=== PATIENT | female | born 1990 | race African-American/Black ===

== ENCOUNTER 2020-05-05 11:01 | Outpatient (REF) | payer OTHER, SELFPAY ==
[2020-05-06 09:33] LABS: CT PCR NOT DETECTED (Not Detect.); NG PCR NOT DETECTED (Not Detect.)
[2020-05-06 09:55] LABS: BV Int Neg Control Negative (Negative); BV Int Pos Control Positive (Positive)
== END 2020-05-05 11:02 | disposition home or self-care (01) ==
LOC: HO.LAB 11:01
PROVIDERS: Visit Provider Advanced Practice Midwife
DX: B37.3 Candidiasis of vulva and vagina (principal); Z11.59 Encounter for screening for other viral diseases; Z11.4 Encounter for screening for human immunodeficiency virus [HIV]; Z11.3 Encounter for screening for infections with a predominantly sexual mode of transmission; Z78.9 Other specified health status
CPT/HCPCS: 87480; 87491; 87510; 87591; 87660; 99212

== ENCOUNTER 2020-07-01 10:59 | Outpatient (REF) | payer OTHER, SELFPAY ==
[2020-07-02 10:30] LABS: BV Int Neg Control Negative (Negative); BV Int Pos Control Positive (Positive)
[2020-07-02 21:36] LABS: C. trachomatis RNA TMA NOT DETECTED (NOT DETECTED); N. gonorrhoeae RNA TMA NOT DETECTED (NOT DETECTED)
== END 2020-07-01 11:00 | disposition home or self-care (01) ==
LOC: HO.LAB 10:59
PROVIDERS: PCP Internal Medicine; Visit Provider Advanced Practice Midwife
DX: Z01.419 Encounter for gynecological examination (general) (routine) without abnormal findings (principal); N76.0 Acute vaginitis; B96.89 Other specified bacterial agents as the cause of diseases classified elsewhere; Z20.2 Contact with and (suspected) exposure to infections with a predominantly sexual mode of transmission; Z78.9 Other specified health status; Z80.3 Family history of malignant neoplasm of breast
CPT/HCPCS: 36415; 87210; 87480; 87491; 87510; 87591; 87660

== ENCOUNTER → 2020-07-09 15:03 | Outpatient (BNVA) | payer OTHER, SELFPAY | PROVIDERS: PCP Internal Medicine; Visit Provider Advanced Practice Midwife | DX: Z32.02 Encounter for pregnancy test, result negative (principal) | CPT/HCPCS: 99211 ==

== ENCOUNTER → 2020-09-04 09:25 | Outpatient (BNVA) | payer OTHER, SELFPAY | PROVIDERS: PCP Internal Medicine; Visit Provider Advanced Practice Midwife | DX: Z32.01 Encounter for pregnancy test, result positive (principal); N92.6 Irregular menstruation, unspecified | CPT/HCPCS: 81025; 99212 ==

== ENCOUNTER 2020-09-18 09:56 | Outpatient (REF) | payer OTHER, SELFPAY ==
--- NOTE | ~2020-09-18 | US_ITS ---
EXAMINATION: OBSTETRICAL ULTRASOUND, FIRST TRIMESTER HISTORY: 30-year-old with uncertain dates Viability LMP: 08/05/2020 COMPARISON: 05/07/2019 TECHNIQUE: Real time transabdominal imaging with color and M-mode Doppler. FINDINGS: A single, live IUP CRL of 2.0 mm c/w 5.6wks is noted. Heart Rate: 120 beats per minute. Both maternal ovaries are seen and appear normal. GESTATIONAL AGE: 1. GA from LMP: 6.2 wks 2. GA from AUA: 5.6 wks ESTIMATED DATE OF DELIVERY: 1. MARIANNE from LMP: 05/12/2021 2. MARIANNE from AUA: 05/15/2021 US/US OB transvaginal IMPRESSION: 1. A single live IUP 2. Size equals dates 3. Normal ovaries A follow-up ultrasound at approximately 12 weeks of gestation for NT evaluation is suggested (not scheduled).
--- NOTE | ~2020-09-18 | US_ITS ---
EXAMINATION: OBSTETRICAL ULTRASOUND, FIRST TRIMESTER HISTORY: 30-year-old with uncertain dates Viability LMP: 08/05/2020 COMPARISON: 05/07/2019 TECHNIQUE: Real time transabdominal imaging with color and M-mode Doppler. FINDINGS: A single, live IUP CRL of 2.0 mm c/w 5.6wks is noted. Heart Rate: 120 beats per minute. Both maternal ovaries are seen and appear normal. GESTATIONAL AGE: 1. GA from LMP: 6.2 wks 2. GA from AUA: 5.6 wks ESTIMATED DATE OF DELIVERY: 1. MARIANNE from LMP: 05/12/2021 2. MARIANNE from AUA: 05/15/2021 US/US OB <= 14 weeks fetus IMPRESSION: 1. A single live IUP 2. Size equals dates 3. Normal ovaries A follow-up ultrasound at approximately 12 weeks of gestation for NT evaluation is suggested (not scheduled).
== END 2020-09-18 09:57 | disposition home or self-care (01) ==
LOC: HO.US 09:56
PROVIDERS: PCP Internal Medicine; Visit Provider Advanced Practice Midwife
DX: R10.2 Pelvic and perineal pain (principal); N92.6 Irregular menstruation, unspecified
CPT/HCPCS: 76801; 76817

== ENCOUNTER → 2020-10-08 10:03 | Outpatient (BNVA) | payer OTHER, SELFPAY | PROVIDERS: PCP Internal Medicine; Visit Provider Advanced Practice Midwife | DX: Z13.89 Encounter for screening for other disorder (principal) | CPT/HCPCS: 99212 ==

== ENCOUNTER 2020-10-29 09:24 | Outpatient (REF) | payer OTHER, SELFPAY ==
[2020-10-30 09:17] LABS: BV Int Neg Control Negative (Negative); BV Int Pos Control Positive (Positive)
[2020-10-30 09:28] LABS: CT PCR NOT DETECTED (Not Detect.); NG PCR NOT DETECTED (Not Detect.)
== END 2020-10-29 09:25 | disposition home or self-care (01) ==
LOC: HO.LAB 09:24
PROVIDERS: PCP Internal Medicine; Visit Provider Advanced Practice Midwife
DX: Z34.90 Encounter for supervision of normal pregnancy, unspecified, unspecified trimester (principal); Z20.2 Contact with and (suspected) exposure to infections with a predominantly sexual mode of transmission; Z86.59 Personal history of other mental and behavioral disorders
CPT/HCPCS: 81003; 87480; 87491; 87510; 87591; 87660; 99212

== ENCOUNTER 2020-10-30 13:27 | Outpatient (REF) | payer OTHER, SELFPAY ==
--- NOTE | ~2020-10-30 | US_ITS ---
EXAMINATION: OBSTETRICAL ULTRASOUND, FIRST TRIMESTER HISTORY: 30-year-old at 12.2 weeks of gestation NT screening COMPARISON: 09/18/2020 TECHNIQUE: Real time transabdominal imaging with color and M-mode Doppler. FINDINGS: A single, live IUP CRL of 65.3 mm c/w 13.0wks is noted. Heart Rate: 150 beats per minute. Normal yolk sac seen. NT was 1.96.mm. NB Present The embryo appears sonographically wnl for this GA. Right ovary is within normal limits. Left ovary was suboptimally seen. GESTATIONAL AGE: 1. Established GA: 12.2 wks 2. GA from AUA: 13.0 wks ESTIMATED DATE OF DELIVERY: 1. Established MARIANNE: 05/12/2021 2. MARIANNE from [facility]: 05/07/2021 US/US OB 1T nuc measure add IMPRESSION: 1. Single live IUP 2. Size equals dates 3. NT of 1.96 mm MFM Consultation: I reviewed the ultrasound findings along with significance of NT measurement. The NT of less than 3mm is generally reassuring. However, the sensitivity for T21 detection is only 60%. I reviewed the availability of serum aneuploidy screening which includes cell-free DNA and placental protein based tests. I discussed the sensitivity, false-positive rate, and other limitations associated with each test. I also reviewed the availability of invasive diagnostic tests that are associated small but definite risk of miscarriage. We also reviewed the differences between screening tests and diagnostic tests. After our discussion, she opted for the First trimester screening that is based on cell-free DNA or non-invasive testing (NIPT). The result will be faxed to your office in approximately 7 days. A follow up at 18 weeks for survey has been scheduled. Thank you very much for this referral. Total time 20 minutes. The time spent was devoted to counseling the patient about the disease and diagnosis, coordinating care including reviewing her records, pertinent lab data and studies, as well as discussing diagnostic evaluation and workup, plan therapeutic interventions and future disposition of care. This includes any additional research needed to obtain further information in formulating the plan of care of this patient. This note was generated with a voice recognition program. Please excuse any errors which may have been overlooked during my review of this note. Sometimes these errors may affect the content or meaning of a given sentence.
== END 2020-10-30 13:28 | disposition home or self-care (01) ==
LOC: HO.US 13:27
PROVIDERS: PCP Internal Medicine; Visit Provider Advanced Practice Midwife
DX: Z34.90 Encounter for supervision of normal pregnancy, unspecified, unspecified trimester (principal); Z36.82 Encounter for antenatal screening for nuchal translucency
CPT/HCPCS: 76813; 76814

== ENCOUNTER 2020-11-26 11:57 | Outpatient (REF) | payer OTHER, SELFPAY ==
[2020-11-27 08:42] LABS: BV Int Neg Control Negative (Negative); BV Int Pos Control Positive (Positive)
== END 2020-11-26 11:58 | disposition home or self-care (01) ==
LOC: HO.LAB 11:57
PROVIDERS: PCP Internal Medicine; Visit Provider Advanced Practice Midwife
DX: O26.892 Other specified pregnancy related conditions, second trimester (principal); N89.8 Other specified noninflammatory disorders of vagina; Z3A.16 16 weeks gestation of pregnancy
CPT/HCPCS: 81003; 87480; 87510; 87660; 99212

== ENCOUNTER 2020-12-04 13:45 | Outpatient (REF) | payer OTHER, SELFPAY ==
[2020-12-04 14:48] LABS: MANUAL DIFF FLAG NO
[2020-12-04 14:56] LABS: Basophils Percent Auto 0.2 % (0-2); Eosinophils Absolute Auto 0.1 X10*3/uL (0.0-0.4); Eosinophils Percent Auto 1.1 % (0-4); Hematocrit 34.4 % (37-47); Hemoglobin 11.7 g/dl (12.0-16.0); Imm Gran Abs Auto 0.05 X10*3/uL (0.00-0.03); Imm Gran Pct Auto 0.6 % (0.0-0.4); Lymphocytes Absolute Auto 1.1 X10*3/uL (1.2-4.9); Lymphocytes Percent Auto 13.3 % (20-40); Mean Corpuscular Hemoglobin 30.8 pg (27.0-33.0); Mean Corpuscular Volume 90.5 fL (80-98); Mean Platelet Volume 11.4 fL (9.4-12.3); Monocytes Absolute Auto 0.5 X10*3/uL (0.1-1.2); Monocytes Percent Auto 6.2 % (2-11); Neutrophils Absolute Auto 6.6 X10*3/uL (2.0-8.3); Neutrophils Percent Auto 78.6 % (45-73); Platelet Count 164 X10*3/uL (160-400); Red Cell Distribution Width 13.5 % (11.0-16.0); White Blood Count 8.4 X10*3/uL (4.8-10.8)
[2020-12-04 15:40] LABS: Syphilis Screen Nonreactive (Nonreactive)
[2020-12-04 17:32] LABS: Amphetamine Screen Urine Not Detected (Not Detect); Barbiturates, Urine Not Detected (Not Detect); Benzodiazepines Screen Urine Not Detected (Not Detect); Cannabinoid Screen Urine Not Detected (Not Detect); Cocaine Screen Urine Not Detected (Not Detect); Opiate Screen Urine Not Detected (Not Detect); Phencyclidine Screen Urine Not Detected (Not Detect)
[2020-12-05 08:52] LABS: Rubella IgG Antibody 2.56 Index
[2020-12-05 12:41] LABS: CT PCR NOT DETECTED (Not Detect.); NG PCR NOT DETECTED (Not Detect.)
[2020-12-07 08:00] LABS: HBsAGNum1 0.18 S/CO (0.00-0.99); HIV AB/AG Nonreactive (Nonreactive); HIV Num 1 0.06 S/CO (0.00-0.99); Hepatitis B Surface Antigen Negative (Negative); ~HepC Num1 0.13 S/CO (0.00-0.79); ~Hepatitis C Antibody Nonreactive (Nonreactive)
[2020-12-07 15:32] LABS: Hematocrit 33.3 % (35.0-45.0); Hemoglobin 11.6 g/dL (11.7-15.5); MCH 31.4 pg (27.0-33.0); RDW 12.9 % (11.0-15.0)
== END 2020-12-04 13:46 | disposition home or self-care (01) ==
LOC: HO.LAB 13:45
PROVIDERS: PCP Internal Medicine; Visit Provider Advanced Practice Midwife
DX: Z30.09 Encounter for other general counseling and advice on contraception (principal); B37.3 Candidiasis of vulva and vagina; Z20.2 Contact with and (suspected) exposure to infections with a predominantly sexual mode of transmission; B96.89 Other specified bacterial agents as the cause of diseases classified elsewhere; N76.0 Acute vaginitis; Z78.9 Other specified health status; Z83.2 Family history of diseases of the blood and blood-forming organs and certain disorders involving the immune mechanism
CPT/HCPCS: 80307; 83020; 85014; 85018; 85025; 85041; 86762; 86780; 86787; 86803; 86850; 86886; 86900; 86901; 87086; 87340; 87389; 87491; 87591

== ENCOUNTER 2020-12-11 11:27 | Outpatient (REF) | payer OTHER, SELFPAY ==
--- NOTE | ~2020-12-11 | US_ITS ---
EXAMINATION: US OBSTETRICAL CLINICAL INFORMATION: 30-year-old at 18.2 weeks of gestation Suspected anomaly COMPARISON: 11/03/2020 TECHNIQUE: Real-time transabdominal ultrasound was performed using C1-5 megahertz transducer. FINDINGS: A single, active, fetus is seen in vertex presentation. The placenta is anterior without previa, and the amniotic fluid volume is wnl. MEASUREMENTS: 1. Biparietal Diameter: 4.5 cm; 19.4 wks 2. Occipital Frontal Diameter: 5.3 cm 3. Head Circumference: 16.5 cm; 19.2 wks 4. Abdominal Circumference: 13.4 cm; 18.6 wks 5. Femur Length: 2.9 cm; 19.0 wks 6. Humerus Length: 2.8 cm; 19.1 wks 7. Tibia Length: 2.5 cm; 18.5 wks 8. Ulna Length: 2.7 cm; 19.5 wks 9. Lateral ventricle: 0.72 cm 10. Cerebellum: 1.8 cm; 18.3 wks 11. Cisterna Magna: 0.4 cm 12. Nuchal Fold: 2.8 mm 13. Heart Rate: 134 beats per minute Rt ovary: normal Lt ovary: normal Cervical length 3.1 cm on T/A. GESTATIONAL AGE: 1. Established GA: 18.2 wks 2. GA from [facility]: 19 point wks ESTIMATED DATE OF DELIVERY: 1. Established MARIANNE: 05/12/2021 2. MARIANNE from [facility]: 05/05/2021 ANATOMY: The visualized anatomy includes but not limited to: 1. Cranium: Normal 2. Intracranial anatomy: cavum septum pellucidi, lateral ventricles, choroid plexus, cerebellum, posterior fossa, third and fourth ventricles. 3. face: orbits, lip/palate, profile, nasal bone 4. Heart: four-chamber view of the heart, ventricular septum, foramen ovale, pulmonary vein, left and right outflow tracts, three-vessel view, 3 vessel trachea view, aortic and ductal arches, situs.. 5. Diaphragm: Normal 6. Abdominal wall: Normal 7. Cord Insertion: Normal 8. Spine: Cervical, thoracic, lumbar, sacral. 9. Stomach: Normal size and shape 10. Right Kidney: Normal 11. Left Kidney: Normal 12. 3 vessel cord: Normal 13. Upper extremity: Open hands, fifth digit. 14. Lower extremity: Tibia, fibula, bilateral feet. 15. Bladder: Normal 16. Genitalia: Male, patient aware US/US OB /maternal detail IMPRESSION: 1. Single, living, intrauterine with appropriate biometry. 2. Normal survey DISCUSSION: I reviewed today's ultrasound findings. We discussed the limitations of ultrasound in diagnosing aneuploidy and other congenital abnormalities. I reviewed the differences between screening test and diagnostic test. Amniocentesis was discussed and declined. She was informed that the baseline incidence of congenital abnormalities is approximately 3-5%. Not all these conditions are diagnosable in utero. RECOMMENDATIONS: Follow-up when necessary. Thank you for allowing me to participate in her care. Total time 20 minutes. The time spent was devoted to counseling the patient about the disease and diagnosis, coordinating care including reviewing her records, pertinent lab data and studies, as well as discussing diagnostic evaluation and workup, plan therapeutic interventions and future disposition of care. This includes any additional research needed to obtain further information in formulating the plan of care of this patient. This note was generated with a voice recognition program. Please excuse any errors which may have been overlooked during my review of this note. Sometimes these errors may affect the content or meaning of a given sentence.
== END 2020-12-11 11:28 | disposition home or self-care (01) ==
LOC: HO.US 11:27
PROVIDERS: Visit Provider Advanced Practice Midwife
DX: O35.9XX0 Maternal care for (suspected) fetal abnormality and damage, unspecified, not applicable or unspecified (principal); Z3A.18 18 weeks gestation of pregnancy
CPT/HCPCS: 76811

== ENCOUNTER 2020-12-15 14:37 | Emergency (ER) | payer OTHER, SELFPAY ==
[2020-12-15 15:10] VITALS: BP 114/64; PULSE 69; RESP 18; TEMP 36.7; O2SAT 97; BMI 28.6
[2020-12-15 16:05] LABS: Glucose Urine UA NEG (NEG); Leukocyte Esterase Urine NEG (NEG); Nitrite Urine NEG (NEG); Urine Blood NEG (NEG); Urine Ketones 5 MG/DL (NEG); Urine Protein TRACE MG/DL (NEG-TRACE)
[2020-12-15 16:06] LABS: Appearance Urine CLEAR; Color Urine YELLOW
--- NOTE | 2020-12-15 17:45 | ED_ITS ---
HPI - Female Genitourinary General Chief complaint: Urogenital-Female Stated complaint: 19 weeks , possible kidney infection Time Seen by Provider: 12/15/20 17:38 Source: patient Mode of arrival: ambulatory Limitations: no limitations History of Present Illness HPI Narrative: 30-year-old female currently 19 weeks presents with urinary hesitancy and frequency. she did report this to her sap developer, sap developer requested her to present to an emergency department or urgent care facility for urinalysis. She does not report any abnormal vaginal discharge, vaginal bleeding, she does state to feel tight around her abdomen but she has felt this way for several weeks. This is her 4th , and she does not have any concerns at this time. She denies vaginal bleeding, cramping, chest pain or pressure, palpitations, shortness of breath, shortness of breath on exertion, edema, dizziness, lightheadedness, weakness, abnormal bruising, nausea, vomiting, diarrhea, constipation, trauma, or recent falls. MD elicited complaint: UTI Onset (ago): day(s) Location of symptoms: urethra Severity: mild Severity scale (1-10): 4 Consistency: intermittent Vaginal discharge: none Vaginal bleeding: none Urinary symptoms: Dysuria, Urgency and Frequency Exacerbating factors: urination Relieving factors: none Associated symptoms: denies other symptoms Treatment prior to arrival: none Sexual activity: Yes Patient : Yes Related Data : 4 Para: 3 Total number of abortions (spontaneous and elective): 0 Previous Rx's Medication Instructions Recorded vitamins with calcium 1 tab PO DAILY 30 Days #30 tab 07/03/20 no.72-iron 29 mg-folic acid 1 mg tablet metronidazole 500 mg tablet 500 mg PO BID 7 Days #14 tab 11/03/20 metronidazole 500 mg tablet 500 mg PO BID PRN 7 Days #14 tab 11/30/20 Allergies Allergy/AdvReac Type Severity Reaction Status Date / Time No Known Allergies Allergy Verified 12/15/20 15:10 Review of Systems Review of Systems: Constitutional: No Fever, No Chills ENT/Mouth: No sore throat Eyes: No Eye Pain, No Swelling, No Redness Cardiovascular: No Chest Pain, No SOB Respiratory: No Cough, No Sputum, No Wheezing Gastrointestinal: No Nausea, no Vomiting, No Diarrhea, no abdominal pain Genitourinary: positive , positive Dysuria, positive urinary frequency, no Hematuria, no Flank Pain, positive hesitancy Musculoskeletal: No joint pain, No Myalgias Skin: No Skin Lesions, No rash Neuro: No Weakness, No Numbness, No Headache Psych: No Anxiety/Panic, No Depression Heme/Lymph: No Bruising, No Lymphadenopathy Endocrine: No Polyuria, No Polydipsia Yes all other systems are reviewed and are negative [facility] Past Medical History Attestation statement: The following information was validated with the patient. Source: old records reviewed Medical History Asthma : 4 Para: 3 Total number of abortions (spontaneous and elective): 0 Family History Family History Mother History of breast cancer in female History of diabetes mellitus Hypertension Father Cardiovascular disease Maternal Grandmother Hypertension Cardiovascular disease History of stroke Maternal Aunt History of diabetes mellitus Hypertension Social History Social History Household Members: Children Housing: House Are you a primary home care aide to a significant other at home: No Do you presently have visiting nurse or other home services: No Alcohol intake: former Trauma History: None Agree to transfusion: Yes Advance Directives: No Advance Directives Information Provided: No Patient : Yes service: No Current occupational status: employed 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 Oriented X3. No acute distress. Eyes: Pupils equal, round and reactive to light. ENT: Pharynx normal. Neck: Normal inspection. Neck supple. CVS: Normal heart rate and rhythm. Pulses normal. Respiratory: No respiratory distress. Breath sounds normal. Abdomen: Soft and nontender. palpable uterus just above the umbilicus consistent with 19 weeks . Skin: Skin warm and dry. Normal skin color. Normal skin turgor. Extremities: No lower extremity edema. Neuro: No motor deficit. No sensory deficit. Course Course Course Narrative: A 30-year-old female, 4 para 3 A0 presents with urinary frequency, hesitancy, and urgency. States that she was referred by her sap developer. Her urinalysis is negative, will refer back to sap developer. heart tones 155. patient verbalized understanding of and agrees to plan of care discharge home. MDM - Female Genitourinary Differential Diagnosis Differential diagnosis: Likely urinary tract infection Medical Records Attestation: I reviewed the patient's medical records. Lab Data Attestation: I reviewed the patient's lab results. Labs: Lab Results 12/15/20 Range/Units 15:54 Urine Color YELLOW Urine Appearance CLEAR Urine pH 7.0 (5.0-8.0) Ur Specific [place] 1.020 (1.005-1.025) Urine Protein TRACE (NEG-TRACE) MG/DL Urine Glucose (UA) NEG (NEG) MG/DL Urine Ketones 5 (NEG) MG/DL Urine Blood NEG (NEG) Urine Nitrite NEG (NEG) Ur Leukocyte Esterase NEG (NEG) Discharge Plan Discharge Clinical Impression: Increased urinary frequency Qualifiers: Weeks of gestation: 19 weeks Qualified Code(s): Z3A.19 - 19 weeks gestation of Patient Disposition: Home, Self-Care Instructions: Dysuria (ED), at 19 to 22 Weeks (ED) Additional Instructions: you were evaluated for urinary frequency, hesitancy, and urinary symptoms. Your urinalysis was negative. Please follow-up with your sap developer for further evaluation. heart tones were 155. Thank you for choosing this emergency department for evaluation. Please follow-up with primary care physician as needed. Return to the emergency department for any new, concerning, or worsening symptoms. Prescriptions: No Action Plus 29 mg iron- 1 mg tablet 1 tab PO DAILY 30 Days Qty: 30 RF: 11 metronidazole [Flagyl] 500 mg tablet 500 mg PO BID 7 Days Qty: 14 RF: 0 metronidazole [Flagyl] 500 mg tablet 500 mg PO BID PRN (Reason: BV) 7 Days Qty: 14 RF: 0 Interventions: ED Discharge Assessment Last Done: 12/15/20 18:20 Discharge Date/Time: 12/15/20 18:22
--- NOTE | 2020-12-15 17:59 | PC.NURSE ---
PT HEART RATE 155.
== END 2020-12-15 18:22 | disposition home or self-care (01) ==
PROVIDERS: Emergency Provider Emergency Medicine; PCP Internal Medicine
DX: O26.892 Other specified pregnancy related conditions, second trimester (principal); R35.0 Frequency of micturition; R39.11 Hesitancy of micturition; R39.15 Urgency of urination; Z3A.19 19 weeks gestation of pregnancy
CPT/HCPCS: 81003; 99283; 99284

== ENCOUNTER → 2020-12-24 11:05 | Outpatient (BNVA) | payer OTHER, SELFPAY | PROVIDERS: PCP Internal Medicine; Visit Provider Advanced Practice Midwife | DX: Z34.92 Encounter for supervision of normal pregnancy, unspecified, second trimester (principal); Z3A.20 20 weeks gestation of pregnancy | CPT/HCPCS: 99212 ==

== ENCOUNTER → 2021-01-21 11:39 | Outpatient (BNVA) | payer OTHER, SELFPAY | PROVIDERS: Visit Provider Advanced Practice Midwife | DX: Z34.82 Encounter for supervision of other normal pregnancy, second trimester (principal); Z3A.24 24 weeks gestation of pregnancy | CPT/HCPCS: 99212 ==

== ENCOUNTER 2021-02-18 11:34 | Outpatient (REF) | payer OTHER, SELFPAY ==
[2021-02-19 08:47] LABS: BV Int Neg Control Negative (Negative); BV Int Pos Control Positive (Positive)
== END 2021-02-18 11:35 | disposition home or self-care (01) ==
LOC: HO.LAB 11:34
PROVIDERS: Visit Provider Advanced Practice Midwife
DX: O26.893 Other specified pregnancy related conditions, third trimester (principal); R35.0 Frequency of micturition; Z3A.28 28 weeks gestation of pregnancy
CPT/HCPCS: 87086; 87480; 87510; 87660; 99212

== ENCOUNTER 2021-02-24 14:00 | Outpatient (RCR) | payer OTHER, SELFPAY | END 2021-06-21 08:24 | disposition home or self-care (01) | LOC: HO.PT 14:00 | PROVIDERS: PCP Internal Medicine; Visit Provider Advanced Practice Midwife | DX: O26.899 Other specified pregnancy related conditions, unspecified trimester (principal); M54.5 Low back pain | CPT/HCPCS: 97110; 97112; 97116; 97162 ==

== ENCOUNTER → 2021-03-02 13:12 | Outpatient (BNVA) | payer OTHER, SELFPAY | PROVIDERS: Visit Provider Advanced Practice Midwife | DX: O26.843 Uterine size-date discrepancy, third trimester (principal); Z3A.30 30 weeks gestation of pregnancy | CPT/HCPCS: 99212 ==

== ENCOUNTER 2021-03-05 12:01 | Outpatient (REF) | payer OTHER, SELFPAY ==
--- NOTE | ~2021-03-05 | US_ITS ---
EXAMINATION: OBSTETRICAL ULTRASOUND, Follow up HISTORY: 31-year-old at 30.2 weeks of gestation Size date discrepancy COMPARISON: 12/11/2020 TECHNIQUE: Real time transabdominal imaging with color and M-mode Doppler. PRESENTATION: Vertex PLACENTA LOCATION: Anterior without previa AMNIOTIC FLUID: SHARRI 22.0 cm MEASUREMENTS: 1. Biparietal Diameter: 7.8 cm; 31.2 wks 2. Head Circumference: 29.3 cm; 32.3 wks 3. Abdominal Circumference: 29.7 cm; 33.5 wks 4. Femur Length: 6.1 cm; 31.5 wks 5. Heart Rate: 156 beats per minute WEIGHT: EFW: 2036 grams (4 lbs 8 oz) -- 98 %. BIOPHYSICAL PROFILE: Motion: 2 Tone: 2 Breathin Amniotic Fluid: 2 Total score: 8/8 GESTATIONAL AGE: 1. Established GA: 30.2 wks 2. GA from AUA: 32.2 wks ESTIMATED DATE OF DELIVERY: 1. Established MARIANNE: 05/12/2021 2. MARIANNE from [facility]: 04/28/2021 US/US OB follow up IMPRESSION: 1. A single active fetus is in vertex presentation 2. Size greater than dates, EFW corresponds to 98th percentile 3. SHARRI of 22.0 cm with the BPP of 8/8 Her 1 hour GLT is pending. She has a history of full-term delivery with weight of 8 lbs. 15 oz. She also reports having delivered a 4 lbs. 8 oz. child at approximately 32 weeks. States that the indication for delivery was growth restriction. The babies spent less than a weak intensive care unit. I do not have the record from my inspection today to verify her history. I reassured her that the there does not appear to be growth problem. I also discussed the limitations of ultrasound and estimating weights. Although the EFW on today's examination corresponds to 98th percentile, this does not predict macrosomia at term. Unless the EFW is 4500 g in diabetic and 5000 g in nondiabetic women, everyone is encouraged to attempt a vaginal delivery. Thank you very much for this referral. Total time 30 minutes. The time spent was devoted to counseling the patient about the disease and diagnosis, coordinating care including reviewing her records, pertinent lab data and studies, as well as discussing diagnostic evaluation and workup, plan therapeutic interventions and future disposition of care. This includes any additional research needed to obtain further information in formulating the plan of care of this patient. This note was generated with a voice recognition program. Please excuse any errors which may have been overlooked during my review of this note. Sometimes these errors may affect the content or meaning of a given sentence.
== END 2021-03-05 12:02 | disposition home or self-care (01) ==
LOC: HO.US 12:01
PROVIDERS: Visit Provider Advanced Practice Midwife
DX: O26.849 Uterine size-date discrepancy, unspecified trimester (principal)
CPT/HCPCS: 76816

== ENCOUNTER 2021-03-08 10:37 | Outpatient (REF) | payer OTHER, SELFPAY ==
[2021-03-08 12:16] LABS: Hematocrit 30.4 % (37-47); Hemoglobin 10.3 g/dl (12.0-16.0); Mean Corpuscular HGB Conc 33.9 g/dl (31.0-35.0); Mean Corpuscular Hemoglobin 29.8 pg (27.0-33.0); Mean Corpuscular Volume 87.9 fL (80-98); Mean Platelet Volume 11.4 fL (9.4-12.3); Platelet Count 149 X10*3/uL (160-400); Red Blood Count 3.46 X10*6/uL (4.20-5.50); Red Cell Distribution Width 13.2 % (11.0-16.0); White Blood Count 7.4 X10*3/uL (4.8-10.8)
[2021-03-08 12:34] LABS: Glucose 1 Hour PP 50gm Dose 191 mg/dL (60-140)
[2021-03-08 13:27] LABS: Syphilis Screen Nonreactive (Nonreactive)
== END 2021-03-08 10:38 | disposition home or self-care (01) ==
LOC: HO.LAB 10:37
PROVIDERS: PCP Internal Medicine; Visit Provider Advanced Practice Midwife
DX: Z34.93 Encounter for supervision of normal pregnancy, unspecified, third trimester (principal)
CPT/HCPCS: 36415; 85027; 86780

== ENCOUNTER 2021-03-15 09:29 | Outpatient (REF) | payer OTHER, SELFPAY ==
[2021-03-15 11:06] LABS: Glucose Fasting 93 mg/dL (60-99)
[2021-03-15 12:33] LABS: Glucose 1 Hour 193 mg/dL
[2021-03-15 13:08] LABS: Glucose 2 Hour 182 mg/dL
[2021-03-15 14:13] LABS: Glucose 3 Hour 160 mg/dL
== END 2021-03-15 09:30 | disposition home or self-care (01) ==
LOC: HO.LAB 09:29
PROVIDERS: PCP Internal Medicine; Visit Provider Advanced Practice Midwife
DX: O26.849 Uterine size-date discrepancy, unspecified trimester (principal); O99.810 Abnormal glucose complicating pregnancy
CPT/HCPCS: 36415; 82951

== ENCOUNTER → 2021-03-18 11:38 | Outpatient (BNVA) | payer OTHER, SELFPAY | PROVIDERS: Visit Provider Advanced Practice Midwife | DX: O26.843 Uterine size-date discrepancy, third trimester (principal); O24.419 Gestational diabetes mellitus in pregnancy, unspecified control; Z3A.32 32 weeks gestation of pregnancy | CPT/HCPCS: 81003; 99212 ==

== ENCOUNTER → 2021-03-22 10:06 | Outpatient (BNVA) | payer OTHER, SELFPAY | PROVIDERS: Visit Provider Advanced Practice Midwife | DX: O24.419 Gestational diabetes mellitus in pregnancy, unspecified control (principal); Z3A.32 32 weeks gestation of pregnancy | CPT/HCPCS: 99211 ==

== ENCOUNTER → 2021-03-25 09:26 | Outpatient (BNVA) | payer OTHER, SELFPAY | PROVIDERS: Visit Provider Obstetrics & Gynecology | DX: O24.410 Gestational diabetes mellitus in pregnancy, diet controlled (principal); O99.013 Anemia complicating pregnancy, third trimester; Z3A.33 33 weeks gestation of pregnancy | CPT/HCPCS: 59025; 99212 ==

== ENCOUNTER 2021-03-26 13:33 | Outpatient (REF) | payer OTHER, SELFPAY ==
--- NOTE | ~2021-03-26 | US_ITS ---
EXAMINATION: OBSTETRICAL ULTRASOUND, Follow up HISTORY: 31-year-old at 33.2 weeks of gestation Gestational diabetes Size greater than dates COMPARISON: 03/05/2021 TECHNIQUE: Real time transabdominal imaging with color and M-mode Doppler. PRESENTATION: Vertex PLACENTA LOCATION: Anterior without previa AMNIOTIC FLUID: 15.2 MEASUREMENTS: 1. Biparietal Diameter: 8.3 cm; 33.4 wks 2. Head Circumference: 31.97 cm; 36.1 wks 3. Abdominal Circumference: 33.6 cm; 37.4 wks 4. Femur Length: 6.8 cm; 34.6 wks 5. Heart Rate: 133 beats per minute WEIGHT: EFW: 2879 grams (6 lbs 6 oz) -- 98 %. BIOPHYSICAL PROFILE: Motion: 2 Tone: 2 Breathin Amniotic Fluid: 2 Total score: 8/8 GESTATIONAL AGE: 1. Established GA: The 33.2 wks 2. GA [facility]: 35.4 wks ESTIMATED DATE OF DELIVERY: 1. Established MARIANNE: 05/12/2021 2. [facility]NE [facility]: 04/26/2021 US/US OB biophysical profile IMPRESSION: 1. A single active fetus is in vertex presentation 2. Size greater than dates, the EFW corresponds to 98th percentile 3. Reassuring biophysical profile I reviewed the findings and informed her that the EFW corresponds to 98th percentile. However this does not predict macrosomia at term. She was recently diagnosed with gestational diabetes and is currently on diet. Reports that her fasting values are in the mid to upper 90s. The majority of postprandial values are within normal range. Advised her to continue to adhered to her diet and follow-up in approximately 3 weeks as long as she continues to do well on diet. I informed her that the if the EFW at term exceeds 4500 g, the risk of the permanent Erb's palsy due to shoulder dystocia is high enough to justify an elective delivery. Thank you very much for this referral. Total time 30 minutes. The time spent was devoted to counseling the patient about the disease and diagnosis, coordinating care including reviewing her records, pertinent lab data and studies, as well as discussing diagnostic evaluation and workup, plan therapeutic interventions and future disposition of care. This includes any additional research needed to obtain further information in formulating the plan of care of this patient. This note was generated with a voice recognition program. Please excuse any errors which may have been overlooked during my review of this note. Sometimes these errors may affect the content or meaning of a given sentence.
== END 2021-03-26 13:34 | disposition home or self-care (01) ==
LOC: HO.US 13:33
PROVIDERS: Visit Provider Advanced Practice Midwife
DX: O24.419 Gestational diabetes mellitus in pregnancy, unspecified control (principal); O26.849 Uterine size-date discrepancy, unspecified trimester
CPT/HCPCS: 76819

== ENCOUNTER → 2021-03-30 10:37 | Outpatient (BNVA) | payer OTHER, SELFPAY | PROVIDERS: Visit Provider Obstetrics & Gynecology | DX: O24.415 Gestational diabetes mellitus in pregnancy, controlled by oral hypoglycemic drugs (principal); Z3A.34 34 weeks gestation of pregnancy | CPT/HCPCS: 59025; 99212 ==

== ENCOUNTER 2021-04-02 13:53 | Outpatient (REF) | payer OTHER, SELFPAY ==
--- NOTE | ~2021-04-02 | US_ITS ---
EXAMINATION: US OBSTETRICAL (BIOPHYSICAL PROFILE) CLINICAL INFORMATION: A 31-year-old at 34.2 weeks of gestation Gestational diabetes on metformin Large for gestational age fetus COMPARISON: 03/26/2021 TECHNIQUE: Biophysical profile is performed over 30 minutes with assessment of breathing, gross body movement, tone, and qualitative amniotic fluid volume. FINDINGS: POSITION: Vertex PLACENTA: Anterior without previa AMNIOTIC FLUID INDEX: 11.6 cm CARDIAC ACTIVITY: 165 beats per minute BIOPHYSICAL PROFILE: Motion: 2 Tone: 2 Breathin Amniotic Fluid: 2 The total biophysical score is 8/8 US/US OB biophysical profile IMPRESSION: 1. Single intrauterine gestation in vertex position. 2. Reassuring BPP and SHARRI She continues on metformin 500 mg every morning. Reports that her fasting values are within normal range. Occasionally in her postprandials rise above 120 but the majority of the values are within target range. She is scheduled for a repeat growth next week. In addition she should continue with the weekly testing. Thank you for allowing me to participate in her care. Total time 30 minutes. The time spent was devoted to counseling the patient about the disease and diagnosis, coordinating care including reviewing her records, pertinent lab data and studies, as well as discussing diagnostic evaluation and workup, plan therapeutic interventions and future disposition of care. This includes any additional research needed to obtain further information in formulating the plan of care of this patient. This note was generated with a voice recognition program. Please excuse any errors which may have been overlooked during my review of this note. Sometimes these errors may affect the content or meaning of a given sentence.
== END 2021-04-02 13:54 | disposition home or self-care (01) ==
LOC: HO.US 13:53
PROVIDERS: Visit Provider Advanced Practice Midwife
DX: O24.419 Gestational diabetes mellitus in pregnancy, unspecified control (principal)
CPT/HCPCS: 76819

== ENCOUNTER 2021-04-06 12:47 | Outpatient (REF) | payer OTHER, SELFPAY ==
[2021-04-07 09:04] LABS: BV Int Neg Control Negative (Negative); BV Int Pos Control Positive (Positive)
[2021-04-07 11:13] LABS: CT PCR NOT DETECTED (Not Detect.); NG PCR NOT DETECTED (Not Detect.)
== END 2021-04-06 12:48 | disposition home or self-care (01) ==
LOC: HO.LAB 12:47
PROVIDERS: Advanced Practice Midwife; Visit Provider Obstetrics & Gynecology
DX: O26.893 Other specified pregnancy related conditions, third trimester (principal); N89.8 Other specified noninflammatory disorders of vagina; Z3A.35 35 weeks gestation of pregnancy
CPT/HCPCS: 59025; 81003; 87081; 87147; 87480; 87491; 87510; 87591; 87660; 99212

== ENCOUNTER 2021-04-09 13:42 | Outpatient (REF) | payer OTHER, SELFPAY ==
--- NOTE | ~2021-04-09 | US_ITS ---
EXAMINATION: US OBSTETRICAL (BIOPHYSICAL PROFILE) CLINICAL INFORMATION: 31-year-old at 35.2 weeks of gestation Gestational diabetes on metformin Size greater than dates COMPARISON: 04/02/2021 TECHNIQUE: Biophysical profile is performed over 30 minutes with assessment of breathing, gross body movement, tone, and qualitative amniotic fluid volume. FINDINGS: POSITION: Cephalic PLACENTA: Anterior without previa AMNIOTIC FLUID INDEX: 17.2 cm CARDIAC ACTIVITY: 147 beats per minute BIOPHYSICAL PROFILE: Motion: 2 Tone: 2 Breathin Amniotic Fluid: 2 The total biophysical score is 8/8 US/US OB biophysical profile IMPRESSION: 1. Single intrauterine gestation in vertex position. 2. Reassuring BPP and SHARRI She informs me that her postprandial dinner values are beginning to rise. She is taking metformin 500 mg by mouth every morning. I reviewed her diet. She is thinking 1% very milk. Advised her to switch to an anterior metallic without additional sugar as the tearing milks contain lactose which could influence her serum glucose level. I also advised her to avoid the suite testing fruits. Finally if her glycemic control continues to be elevated. She may need to increase the metformin to 1000 mg q AM. I reassured her that the fetus is active and there is normal amount of amniotic fluid. An EFW will be repeated next week. Thank you for allowing me to participate in her care. Total time 30 minutes. The time spent was devoted to counseling the patient about the disease and diagnosis, coordinating care including reviewing her records, pertinent lab data and studies, as well as discussing diagnostic evaluation and workup, plan therapeutic interventions and future disposition of care. This includes any additional research needed to obtain further information in formulating the plan of care of this patient. This note was generated with a voice recognition program. Please excuse any errors which may have been overlooked during my review of this note. Sometimes these errors may affect the content or meaning of a given sentence.
== END 2021-04-09 13:43 | disposition home or self-care (01) ==
LOC: HO.US 13:42
PROVIDERS: Visit Provider Advanced Practice Midwife
DX: O24.419 Gestational diabetes mellitus in pregnancy, unspecified control (principal)
CPT/HCPCS: 76819

== ENCOUNTER 2022-02-01 15:21 | Outpatient (REF) | payer OTHER, SELFPAY ==
[2022-02-02 05:44] LABS: CT PCR NOT DETECTED (Not Detect.); NG PCR NOT DETECTED (Not Detect.)
[2022-02-02 13:09] LABS: BV Int Neg Control Negative (Negative); BV Int Pos Control Positive (Positive)
== END 2022-02-01 15:22 | disposition home or self-care (01) ==
LOC: HO.LAB 15:21
PROVIDERS: Visit Provider Advanced Practice Midwife
DX: Z11.3 Encounter for screening for infections with a predominantly sexual mode of transmission (principal); B37.3 Candidiasis of vulva and vagina; Z20.2 Contact with and (suspected) exposure to infections with a predominantly sexual mode of transmission; Z97.5 Presence of (intrauterine) contraceptive device
CPT/HCPCS: 87480; 87491; 87510; 87591; 87660; 99212

== ENCOUNTER 2022-02-08 15:11 | Outpatient (REF) | payer OTHER, SELFPAY ==
[2022-02-12 10:16] LABS: HPV mRNA E6/E7 rflx Not Detected (Not Detected)
== END 2022-02-08 15:12 | disposition home or self-care (01) ==
LOC: HO.LAB 15:11
PROVIDERS: Visit Provider Advanced Practice Midwife
DX: Z01.419 Encounter for gynecological examination (general) (routine) without abnormal findings (principal); Z97.5 Presence of (intrauterine) contraceptive device; Z86.32 Personal history of gestational diabetes; Z20.2 Contact with and (suspected) exposure to infections with a predominantly sexual mode of transmission
CPT/HCPCS: 87624; 88142

== ENCOUNTER 2022-07-12 09:40 | Outpatient (REF) | payer OTHER, SELFPAY ==
[2022-07-12 14:51] LABS: CT PCR NOT DETECTED (Not Detect.); NG PCR NOT DETECTED (Not Detect.)
[2022-07-13 07:45] LABS: Syphilis Screen Nonreactive (Nonreactive)
[2022-07-13 07:54] LABS: HBsAGNum1 0.32 S/CO (0.00-0.99); HIV AB/AG Nonreactive (Nonreactive); HIV Num 1 0.06 S/CO (0.00-0.99); Hepatitis B Surface Antigen Negative (Negative); ~HepC Num1 0.15 S/CO (0.00-0.79); ~Hepatitis C Antibody Nonreactive (Nonreactive)
[2022-07-13 11:32] LABS: BV Int Neg Control Negative (Negative); BV Int Pos Control Positive (Positive)
== END 2022-07-12 09:41 | disposition home or self-care (01) ==
LOC: HO.LAB 09:40
PROVIDERS: Advanced Practice Midwife; PCP Internal Medicine; Visit Provider Advanced Practice Midwife
DX: Z01.419 Encounter for gynecological examination (general) (routine) without abnormal findings (principal); Z11.3 Encounter for screening for infections with a predominantly sexual mode of transmission; Z11.4 Encounter for screening for human immunodeficiency virus [HIV]; Z20.2 Contact with and (suspected) exposure to infections with a predominantly sexual mode of transmission; Z86.32 Personal history of gestational diabetes; Z97.5 Presence of (intrauterine) contraceptive device
CPT/HCPCS: 0353U; 36415; 86780; 86803; 87340; 87389; 87480; 87510; 87660; 99212

== ENCOUNTER 2022-07-12 10:03 | Outpatient (REF) | payer OTHER, SELFPAY | END 2022-07-12 10:04 | disposition home or self-care (01) | LOC: HO.LNP 10:03 | PROVIDERS: Visit Provider Advanced Practice Midwife | DX: Z13.89 Encounter for screening for other disorder (principal) ==

== ENCOUNTER 2022-08-14 19:23 | Emergency (ER) | payer OTHER, SELFPAY ==
[2022-08-14 19:38] VITALS: BP 151/80; PULSE 112; RESP 18; TEMP 36.2; O2SAT 95; BMI 29.2
[2022-08-14 20:07] LABS: MANUAL DIFF FLAG NO
[2022-08-14 20:18] LABS: Basophils Percent Auto 0.1 % (0-2); Eosinophils Absolute Auto 0.1 X10*3/uL (0.0-0.4); Eosinophils Percent Auto 0.4 % (0-4); Hemoglobin 14.3 g/dl (12.0-16.0); Imm Gran Abs Auto 0.11 X10*3/uL (0.00-0.03); Imm Gran Pct Auto 0.9 % (0.0-0.4); Lymphocytes Absolute Auto 0.8 X10*3/uL (1.2-4.9); Lymphocytes Percent Auto 6.3 % (20-40); Mean Corpuscular Hemoglobin 30.3 pg (27.0-33.0); Mean Platelet Volume 11.1 fL (9.4-12.3); Monocytes Absolute Auto 0.4 X10*3/uL (0.1-1.2); Monocytes Percent Auto 3.1 % (2-11); Neutrophils Absolute Auto 10.7 x10*3/uL (2.0-8.3); Neutrophils Percent Auto 89.2 % (45-73); Platelet Count 176 X10*3/uL (160-400); Red Blood Count 4.72 X10*6/uL (4.20-5.50); Red Cell Distribution Width 13.3 % (11.0-16.0)
[2022-08-14 20:27] LABS: COVID-19 Test Negative (Negative); IDNOW Serial# 55D5AD1C; IDNOW Serial# 6674DD1D; Influenza A Negative (Negative); Influenza B2 Negative (Negative)
[2022-08-14 20:28] LABS: Alanine Aminotransferase 22 U/L (0-31); Albumin Level 4.5 g/dL (3.5-5.0); Alkaline Phosphatase 91 U/L (39-117); Anion Gap 12 (12-20); Aspartate Amino Transferase 21 U/L (5-31); Bilirubin Total 1.5 mg/dL (0.0-1.0); Blood Urea Nitrogen 10 mg/dL (9-16); Calcium 9.1 mg/dL (8.4-10.2); Carbon Dioxide 26 mmol/L (22-29); Chloride 108 mmol/L (96-108); Creatinine Clr Calc Pharmacy 101.6; Estimated Glomerular Filt Rate > 60; Glucose Random 106 mg/dL (60-115); Potassium 4.7 mmol/L (3.3-5.1); Sodium 141 mmol/L (135-145); Total Protein 7.7 g/dL (6.5-8.0)
[2022-08-14] MEDS: Ondansetron ODT 4 MG TAB.RAPDIS TRANSLINGU (21:42)
[2022-08-14 21:44] LABS: Appearance Urine Clear; Color Urine Yellow; Glucose Urine UA Negative (Negative); Leukocyte Esterase Urine Small (1+) (Negative); Nitrite Urine Negative (Negative); PH 5.5 (5.0-9.0); Specific Gravity - Urine >= 1.030 (1.005-1.025); UMIC TRIGGER UACC YES; Urine Blood Negative (Negative); Urine Ketones Negative (Negative); Urine Protein Negative (Neg-Trace)
[2022-08-14 21:47] LABS: UPreg QC Valid YES; Urine Pregnancy NEGATIVE (NEGATIVE)
--- NOTE | 2022-08-14 21:48 | PC.NURSE ---
pt a&ox3, vss, resting quietly, medicated per provider order.
[2022-08-14 21:50] LABS: Bacteria Urine 1+ (None Seen); Hyaline Casts Urine 0-2 /LPF (0-2); RBC Urine 0-2 /HPF (0-2); UACC Culture Trigger YES
--- NOTE | 2022-08-14 22:09 | ED_ITS ---
HPI - Nausea/Vomiting/Diarrhea General Chief complaint: Nausea/Vomiting/Diarrhea Stated complaint: Vomiting/Diarrhea Time Seen by Provider: 08/14/22 21:02 Source: patient Mode of arrival: ambulatory History of Present Illness HPI Narrative: 32-year-old female without significant past medical history presents with nausea, vomiting as well as multiple the episodes of diarrhea since after eating an outside restaurant on Monday. She otherwise denies any fever but states she has had some headache but denies any urinary symptoms. Related Data Home Medications Medication Instructions Recorded Confirmed levonorgestrel 20 mcg/24 hours (8 intrauterine 02/01/22 02/08/22 yrs) 52 mg intrauterine device (Mirena) Previous Rx's Medication Instructions Recorded ondansetron HCl 4 mg tablet 4 mg PO Q6H PRN nausea and 08/14/22 vomiting #10 tabs Allergies Allergy/AdvReac Type Severity Reaction Status Date / Time No Known Allergies Allergy Verified 07/12/22 09:48 Review of Systems Review of Systems: Pertinent positives and negatives as stated in HPI PMFSH Past Medical History Source: nursing notes reviewed Medical History Asthma Family History Family History Mother History of breast cancer in female History of diabetes mellitus Hypertension Father Cardiovascular disease Maternal Grandmother Hypertension Cardiovascular disease History of stroke Maternal Aunt History of diabetes mellitus Hypertension Social History Social History Household Members: Children Housing: House Are you a primary care services manager to a significant other at home: No Do you presently have visiting nurse or other home services: No Alcohol intake: former Trauma History: None Agree to transfusion: Yes Advance Directives: No Advance Directives Information Provided: Yes service: No Current occupational status: employed 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 GENERAL: Well developed, well nourished, in no acute distress. HEAD: Normocephalic/atraumatic EYES: PERRLA, EOMI OROPHARYNX: no oral lesions noted, posterior pharynx clear, moist mucosa NECK: Supple, no adenopathy LUNGS: Normal breath sounds. No adventitious sounds or accessory muscle use. SpO2<95> CARDIOVASCULAR: Regular rate and rhythm without noted murmurs ABDOMEN: Soft, non-tender, non-distended with bowel sounds. MUSCULOSKELETAL: No tenderness, deformities, or effusions noted on gross inspection. EXTREMITIES: No cyanosis, clubbing or edema. SKIN: Inspection of the skin reveals no rashes NEUROLOGIC: Alert and oriented x 4. Strength and sensation to light touch were grossly intact x 4. Medications Administered Discontinued Medications Generic Name Dose Route Start Last Admin Trade Name Freq PRN Reason Stop Dose Admin Ondansetron HCl 4 mg 08/14/22 21:05 08/14/22 21:42 Ondansetron Odt 4 Mg Tab.Rapdis TRANSLINGU 08/14/22 21:06 4 mg ONCE ONE Administration Medical Decision Making Medical Decision Making [facility] Narrative: Is a 32-year-old female with history and clinical presentation after review of all investigations my interpretation is that this patient has food poisoning/gastroenteritis. The noted leukocytosis is likely stress/reactive in response to patient's vomiting episodes. She otherwise appears well and is hemodynamically stable. Patient received Zofran and on re-evaluation is feeling better. Differential Diagnosis Differential Diagnoses: The differential diagnosis associated with the presentation includes Please see the discussion above Lab Data [facility] Lab Attestation statement: I reviewed the patient's lab results. Please see the discussion above 08/14/22 20:02 08/14/22 20:02 Labs: Lab Results 08/14/22 08/14/22 08/14/22 Range/Units 20:02 20:02 20:02 WBC 12.0 H (4.8-10.8) X10*3/uL RBC 4.72 (4.20-5.50) X10*6/uL Hgb 14.3 (12.0-16.0) g/dl Hct 42.0 (37.0-47.0) % MCV 89.0 (80.0-98.0) fL MCH 30.3 (27.0-33.0) pg MCHC 34.0 (31.0-35.0) g/dl RDW 13.3 (11.0-16.0) % Plt Count 176 (160-400) X10*3/uL MPV 11.1 (9.4-12.3) fL Immature Gran % (Auto) 0.9 H (0.0-0.4) % Neut % (Auto) 89.2 H (45-73) % Lymph % (Auto) 6.3 L (20-40) % [place] % (Auto) 3.1 (2-11) % Eos % (Auto) 0.4 (0-4) % Baso % (Auto) 0.1 (0-2) % Lymph # (Auto) 0.8 L (1.2-4.9) X10*3/uL [place] # (Auto) 0.4 (0.1-1.2) X10*3/uL Eos # (Auto) 0.1 (0.0-0.4) X10*3/uL Baso # (Auto) 0.0 (0.0-0.2) X10*3/uL Abs Immat Gran (auto) 0.11 H (0.00-0.03) X10*3/uL Absolute Neuts (auto) 10.7 H (2.0-8.3) x10*3/uL Absolute Nucleated RBC 0.000 (0.0-0.012) X10*3/uL Nucleated RBC % (auto) 0.0 (0.0-0.2) /100WBC Sodium (135-145) mmol/L Potassium (3.3-5.1) mmol/L Chloride (96-108) mmol/L Carbon Dioxide (22-29) mmol/L Anion Gap (12-20) BUN (9-16) mg/dL Creatinine (0.5-1.4) mg/dL Estim Creat Clear Calc Estimated GFR Random Glucose (60-115) mg/dL Calcium (8.4-10.2) mg/dL Total Bilirubin (0.0-1.0) mg/dL AST (5-31) U/L ALT (0-31) U/L Alkaline Phosphatase (39-117) U/L Total Protein (6.5-8.0) g/dL Albumin (3.5-5.0) g/dL Urine Color Urine Appearance Urine pH (5.0-9.0) Ur Specific [place] (1.005-1.025) Urine Protein (Neg-Trace) mg/dL Urine Glucose (UA) (Negative) mg/dL Urine Ketones (Negative) mg/dL Urine Blood (Negative) Urine Nitrite (Negative) Ur Leukocyte Esterase (Negative) Urine RBC (0-2) /HPF Urine WBC (0-5) /HPF Ur Squamous Epith Cells (0-2) /HPF Urine Bacteria (None Seen) Hyaline Casts (0-2) /LPF Urine Test (NEGATIVE) COVID-19 (DEMARCUS) Negative (Negative) COVID-19 Clin Com See Note Influenza Type A (LAURA) Negative (Negative) Influenza Type B (LAURA) Negative (Negative) Influenza A & B Note See Note 08/14/22 08/14/22 08/14/22 Range/Units 20:02 21:32 21:33 WBC (4.8-10.8) X10*3/uL RBC (4.20-5.50) X10*6/uL Hgb (12.0-16.0) g/dl Hct (37.0-47.0) % MCV (80.0-98.0) fL MCH (27.0-33.0) pg MCHC (31.0-35.0) g/dl RDW (11.0-16.0) % Plt Count (160-400) X10*3/uL MPV (9.4-12.3) fL Immature Gran % (Auto) (0.0-0.4) % Neut % (Auto) (45-73) % Lymph % (Auto) (20-40) % [place] % (Auto) (2-11) % Eos % (Auto) (0-4) % Baso % (Auto) (0-2) % Lymph # (Auto) (1.2-4.9) X10*3/uL [place] # (Auto) (0.1-1.2) X10*3/uL Eos # (Auto) (0.0-0.4) X10*3/uL Baso # (Auto) (0.0-0.2) X10*3/uL Abs Immat Gran (auto) (0.00-0.03) X10*3/uL Absolute Neuts (auto) (2.0-8.3) x10*3/uL Absolute Nucleated RBC (0.0-0.012) X10*3/uL Nucleated RBC % (auto) (0.0-0.2) /100WBC Sodium 141 (135-145) mmol/L Potassium 4.7 (3.3-5.1) mmol/L Chloride 108 (96-108) mmol/L Carbon Dioxide 26 (22-29) mmol/L Anion Gap 12 (12-20) BUN 10 (9-16) mg/dL Creatinine 0.77 (0.5-1.4) mg/dL Estim Creat Clear Calc 101.6 Estimated GFR > 60 Random Glucose 106 (60-115) mg/dL Calcium 9.1 (8.4-10.2) mg/dL Total Bilirubin 1.5 H (0.0-1.0) mg/dL AST 21 (5-31) U/L ALT 22 (0-31) U/L Alkaline Phosphatase 91 (39-117) U/L Total Protein 7.7 (6.5-8.0) g/dL Albumin 4.5 (3.5-5.0) g/dL Urine Color Yellow Urine Appearance Clear Urine pH 5.5 (5.0-9.0) Ur Specific [place] >= 1.030 H (1.005-1.025) Urine Protein Negative (Neg-Trace) mg/dL Urine Glucose (UA) Negative (Negative) mg/dL Urine Ketones Negative (Negative) mg/dL Urine Blood Negative (Negative) Urine Nitrite Negative (Negative) Ur Leukocyte Esterase Small (1+) H (Negative) Urine RBC 0-2 (0-2) /HPF Urine WBC 11-20 H (0-5) /HPF Ur Squamous Epith Cells 3-5 (0-2) /HPF Urine Bacteria 1+ (None Seen) Hyaline Casts 0-2 (0-2) /LPF Urine Test NEGATIVE (NEGATIVE) COVID-19 (DEMARCUS) (Negative) COVID-19 Clin Com Influenza Type A (LAURA) (Negative) Influenza Type B (LAURA) (Negative) Influenza A & B Note Discharge Plan Discharge Clinical Impression: Gastroenteritis, Food poisoning Patient Disposition: Home, Self-Care Instructions: Gastroenteritis (ED), Food Poisoning (ED) Additional Instructions: 1. Increase fluid hydration, especially with water. 2. You have been given a prescription for Zofran and should continue to use this throughout the day tomorrow to help rehydrate. 3. Please follow-up with your primary care provider next 1-2 days for re- evaluation further outpatient management. Return to the ER for any worsening symptoms. Prescriptions: New ondansetron HCl 4 mg tablet 4 mg PO Q6H PRN (Reason: nausea and vomiting) Qty: 10 0RF No Action Mirena 20 mcg/24 hours (7 yrs) 52 mg intrauterine device intrauterine Stand Alone Forms: Work/School Release
== END 2022-08-14 22:26 | disposition home or self-care (01) ==
PROVIDERS: Emergency Provider Student in an Organized Health Care Education/Training Program; PCP Internal Medicine
DX: A05.9 Bacterial foodborne intoxication, unspecified (principal); R11.2 Nausea with vomiting, unspecified; R19.7 Diarrhea, unspecified; Z20.822 Contact with and (suspected) exposure to COVID-19; Z20.828 Contact with and (suspected) exposure to other viral communicable diseases; Z79.899 Other long term (current) drug therapy
CPT/HCPCS: 36415; 80053; 81001; 81025; 85025; 87086; 87502; 87635; 99282

== ENCOUNTER 2022-11-17 10:57 | Outpatient (REF) | payer OTHER, SELFPAY | END 2022-11-17 10:58 | disposition home or self-care (01) | LOC: HO.LNP 10:57 | PROVIDERS: PCP Internal Medicine; Visit Provider Advanced Practice Midwife | DX: N92.1 Excessive and frequent menstruation with irregular cycle (principal); Z97.5 Presence of (intrauterine) contraceptive device | CPT/HCPCS: 81025; 99212 ==

== ENCOUNTER 2022-11-17 11:22 | Outpatient (REF) | payer OTHER, SELFPAY ==
[2022-11-17 15:23] LABS: CT PCR NOT DETECTED (Not Detect.); NG PCR NOT DETECTED (Not Detect.)
[2022-11-18 09:20] LABS: BV Int Neg Control Negative (Negative); BV Int Pos Control Positive (Positive)
== END 2022-11-17 11:23 | disposition home or self-care (01) ==
LOC: HO.LAB 11:22
PROVIDERS: Visit Provider Advanced Practice Midwife
DX: N92.1 Excessive and frequent menstruation with irregular cycle (principal); Z97.5 Presence of (intrauterine) contraceptive device
CPT/HCPCS: 0353U; 87480; 87510; 87660

== ENCOUNTER 2022-12-13 13:48 | Outpatient (REF) | payer OTHER, SELFPAY ==
--- NOTE | ~2022-12-13 | US_ITS ---
EXAM: Pelvic Ultrasound CLINICAL INDICATION: Excessive and frequent menstruation COMPARISON: Pelvic ultrasound 05/07/2019 TECHNIQUE: The pelvis was evaluated using transabdominal and transvaginal imaging. FINDINGS: Retroverted uterus measures 5.9 x 4.6 x 5.3 cm in longitudinal by AP by transverse dimension. Evaluation of the uterus is limited due to its retroverted positioning although the endometrial stripe is estimated to measure approximately 6 mm in thickness. Linear echogenic focus within the endometrium is consistent with an IUD within the mid body of the uterus. The left ovary measures approximately 3.0 x 1.7 x 1.8 cm and contains some small peripheral calcifications. The right ovary measures approximately 3.2 x 2.7 x 3.4 cm and contains an approximately 3.5 cm cyst with a smaller adjacent daughter cyst. There is a small to moderate amount of free fluid within the pelvis, nonspecific. US/US pelvic and transvaginal IMPRESSION: 1. IUD noted within the uterus although evaluation is somewhat limited due to the retroverted nature of the uterus. 2. Right ovarian cyst. 3. Small to moderate amount of free pelvic fluid, nonspecific.
== END 2022-12-13 13:49 | disposition home or self-care (01) ==
LOC: HO.US 13:48
PROVIDERS: PCP Internal Medicine; Visit Provider Advanced Practice Midwife
DX: N92.1 Excessive and frequent menstruation with irregular cycle (principal)
CPT/HCPCS: 76830; 76856

== ENCOUNTER 2023-01-10 13:39 | Outpatient (REF) | payer OTHER, SELFPAY | END 2023-01-10 13:40 | disposition home or self-care (01) | LOC: HO.LAB 13:39 | PROVIDERS: PCP Internal Medicine; Visit Provider Advanced Practice Midwife | DX: N92.1 Excessive and frequent menstruation with irregular cycle (principal) | CPT/HCPCS: 99212 ==

== ENCOUNTER 2023-01-10 13:39 | Outpatient (AMB) | payer OTHER, SELFPAY ==
[2023-01-10 13:42] VITALS: BP 104/60; BMI 29.2
--- NOTE | 2023-01-10 13:42 | A.OFFVIS_ITS ---
Intake Vital Signs 01/10/23 13:42 Height 5 ft 4 in Weight 170 lb BMI 29.2 BP 104/60 Intake Visit Reasons: Ultra sound follow up Intake Note: The patient agreed to use of a medical records custodian during this encounter. Scribed for CARLEY Miller by Carmen Quinones medical records custodian, on 01/10/2023 at 2:07 pm EST. Allergies No Known Allergies Allergy (Verified 01/10/23 13:42) HPI HPI Comments History of Present Illness Details She is here to discuss US results due to breakthrough bleeding with IUD and with complaints of vaginal soreness, irritation and itching and believes its due to lotions and perfume she sprayed on. She also remembered she accidently used a Clorox wipes to clean while she was out and thinks this may have caused her to be irritated. Records in RE: IUD history: Liletta inserted 06/16/21 @[facility]. Reports spotting before menses monthly, lasting with cycle 4-5days, she reports she thought they gave her a Mirena as that is what she wanted. . Denies pelvic pain. HX of BV, treated last month. She request STD testing. [facility] Medical History Asthma Breakthrough bleeding associated with intrauterine device (IUD) Ovarian cyst Right ovarian cyst Vaginal irritation Vaginal itching Family History Mother History of breast cancer in female History of diabetes mellitus Hypertension Father Cardiovascular disease Maternal Grandmother Hypertension Cardiovascular disease History of stroke Maternal Aunt History of diabetes mellitus Hypertension Social History Household Members: Children Housing: House Are you a primary healthcare or medical to a significant other at home: No Do you presently have visiting nurse or other home services: No Alcohol intake: former Trauma History: None Agree to transfusion: Yes service: No Current occupational status: employed 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 Current occupational exposures/hazards: No Gender identity: Female Female Reproductive History Menstrual Age of Menarche: 11 control method: progestin IUCD (Alinaetta 06/16/21 @[facility]) Physical Exam Vital Signs: Last Vital Signs BP 104/60 01/10/23 13:42 BMI result Body Mass Index 29.2 Const General: cooperative, healthy appearing, comfortable, no acute distress, well developed, alert and awake Other: lower bilateral labial minora with erythema and membranous tissue healing Speculum Exam - Vagina: abnormal vaginal discharge (White, pale yellow and creamy) Bimanual Exam- Adnexa, other: normal adnexae and no masses Results Reviewed Results Reviewed: EXAM: Pelvic Ultrasound CLINICAL INDICATION: Excessive and frequent menstruation COMPARISON: Pelvic ultrasound 05/07/2019 TECHNIQUE:? The pelvis was evaluated using transabdominal and transvaginal imaging. FINDINGS: Retroverted uterus measures 5.9 x 4.6 x 5.3 cm in longitudinal by AP by transverse dimension. Evaluation of the uterus is limited due to its retroverted positioning although the endometrial stripe is estimated to measure approximately 6 mm in thickness. Linear echogenic focus within the endometrium is consistent with an IUD within the mid body of the uterus. The left ovary measures approximately 3.0 x 1.7 x 1.8 cm and contains some small peripheral calcifications. The right ovary measures approximately 3.2 x 2.7 x 3.4 cm and contains an approximately 3.5 cm cyst with a smaller adjacent daughter cyst. There is a small to moderate amount of free fluid within the pelvis, nonspecific. US/US pelvic and transvaginal IMPRESSION: 1.? IUD noted within the uterus although evaluation is somewhat limited due to the retroverted nature of the uterus. 2.? Right ovarian cyst. 3.? Small to moderate amount of free pelvic fluid, nonspecific. ? Assessment & Plan Assessment & Plan (1) Encounter to discuss test results: Code(s): Z71.2 - Person consulting for explanation of examination or test findings Plan: Discussed: US of findings of: 1.? IUD noted within the uterus although evaluation is somewhat limited due to the retroverted nature of the uterus. 2.?Right ovarian cyst. 3.?Small to moderate amount of free pelvic fluid, nonspecific. Report any pelvic pressure, bloating, or pain. BV testing and GC/CT panel done today. Await results and treat accordingly. Vulvar care: healing mucosa most likely due to Clorox chemical exposure. Advised to clean with water only, no soaps to the area, dry well, apply Aquaphor or Vaseline, apply cool or ice pack and wear cotton underwear. No sexual intimacy until symptoms resolved. All of her questions and concerns were addressed to the best of my ability and shared decision making. She is agreeable to plan of care. Follow up Annual exam next month or prn. (2) Breakthrough bleeding associated with intrauterine device (IUD): Code(s): N92.1 - Excessive and frequent menstruation with irregular cycle; Z97.5 - Presence of (intrauterine) contraceptive device (3) Right ovarian cyst: Code(s): N83.201 - Unspecified ovarian cyst, right side (4) Vaginal irritation: Code(s): N89.8 - Other specified noninflammatory disorders of vagina (5) Vaginal itching: Code(s): N89.8 - Other specified noninflammatory disorders of vagina Orders: Orders Bacterial Vaginosis Panel Today N89.8 - Other specified noninflammatory disorders of vagina CT NG by PCR Today N89.8 - Other specified noninflammatory disorders of vagina, Z20.2 - Contact with and (suspected) exposure to infections with a predominantly sexual mode of transmission Coding Level of Care Code Est Pt Level 4 (88434) Diagnoses Encounter to discuss test results Z71.2 Breakthrough bleeding associated with intrauterine device (IUD) N92.1; Z97.5 Right ovarian cyst N83.201 Vaginal irritation N89.8 Vaginal itching N89.8
== END 2023-01-10 14:25 | disposition home or self-care (01) ==
LOC: HO.HWS 13:39
PROVIDERS: PCP Internal Medicine; Visit Provider Advanced Practice Midwife
DX: Z71.2 Person consulting for explanation of examination or test findings (principal); N92.1 Excessive and frequent menstruation with irregular cycle; Z97.5 Presence of (intrauterine) contraceptive device; N83.201 Unspecified ovarian cyst, right side; N89.8 Other specified noninflammatory disorders of vagina
CPT/HCPCS: 99214

== ENCOUNTER 2023-01-10 14:20 | Outpatient (REF) | payer OTHER, SELFPAY ==
[2023-01-10 17:53] LABS: CT PCR NOT DETECTED (Not Detect.); NG PCR NOT DETECTED (Not Detect.)
[2023-01-11 14:53] LABS: BV Int Neg Control Negative (Negative); BV Int Pos Control Positive (Positive)
== END 2023-01-10 14:21 | disposition home or self-care (01) ==
LOC: HO.LNP 14:20
PROVIDERS: Visit Provider Advanced Practice Midwife
DX: N89.8 Other specified noninflammatory disorders of vagina (principal); Z20.2 Contact with and (suspected) exposure to infections with a predominantly sexual mode of transmission
CPT/HCPCS: 0353U; 87480; 87510; 87660

== ENCOUNTER 2023-01-21 07:15 | Outpatient (REF) | payer OTHER, SELFPAY ==
[2023-01-21 07:41] LABS: Hematocrit 43.4 % (37.0-47.0); Hemoglobin 14.4 g/dl (12.0-16.0); Mean Corpuscular HGB Conc 33.2 g/dl (31.0-35.0); Mean Corpuscular Hemoglobin 30.4 pg (27.0-33.0); Mean Corpuscular Volume 91.6 fL (80.0-98.0); Mean Platelet Volume 11.6 fL (9.4-12.3); Platelet Count 182 X10*3/uL (160-400); Red Blood Count 4.74 X10*6/uL (4.20-5.50); Red Cell Distribution Width 12.9 % (11.0-16.0); White Blood Count 6.6 X10*3/uL (4.8-10.8)
[2023-01-21 09:06] LABS: Thyroid Stimulating Hormone 2.36 uIU/mL (0.32-4.0)
== END 2023-01-21 07:16 | disposition home or self-care (01) ==
LOC: HO.LAB 07:15
PROVIDERS: PCP Internal Medicine; Visit Provider Advanced Practice Midwife
DX: N92.1 Excessive and frequent menstruation with irregular cycle (principal)
CPT/HCPCS: 36415; 84443; 85027

== ENCOUNTER 2023-01-26 07:42 | Outpatient (AMB) | payer OTHER, SELFPAY ==
--- NOTE | 2023-01-26 07:42 | A.OFFVIS_ITS ---
Intake Intake Visit Reasons: TV test results Intake Note: cell # [phone] The patient agreed to use of a electromedical equipment repairer during this encounter. Scribed for CARLEY Miller by Carmen Quinones electromedical equipment repairer, on 01/26/2023 Allergies No Known Allergies Allergy (Verified 01/26/23 07:42) HPI HPI Comments History of Present Illness Details Doximity live video 7:58 am - 8:12 am. Phone Call due to Covid-19 Pandemic. Video was utilized. She presents via phone/live video to discuss US results regarding breakthrough bleeding with IUD, excessive and frequent menstruation. She reports sharp right sided pelvic pain last and is now resolved. Was tested for Trichomoniasis and BV recently and was treated for it (completed all medication) and is still having some breakthrough bleeding with IUD. Reports and partner was treated. Reports labial rash that is red and irritated one sided. Has appointment on 02/13/23 with Xochitl CM [facility] Medical History Asthma Breakthrough bleeding associated with intrauterine device (IUD) Ovarian cyst Pelvic pain Right ovarian cyst Trichomonas contact, treated Vaginal irritation Vaginal itching Family History Mother History of breast cancer in female History of diabetes mellitus Hypertension Father Cardiovascular disease Maternal Grandmother Hypertension Cardiovascular disease History of stroke Maternal Aunt History of diabetes mellitus Hypertension Social History Household Members: Children Both parents involved: Yes Caregiver staying overnight: No Housing: House Are you a primary progressive care nurse to a significant other at home: No Do you presently have visiting nurse or other home services: No 75 years or older and lives alone: No Alcohol intake: former Trauma History: None Agree to transfusion: Yes service: No Current occupational status: employed 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 The pelvis was evaluated using transabdominal and transvaginal imaging. FINDINGS: Retroverted uterus measures 5.9 x 4.6 x 5.3 cm in longitudinal by AP by transverse dimension. Evaluation of the uterus is limited due to its retroverted positioning although the endometrial stripe is estimated to measure approximately 6 mm in thickness. Linear echogenic focus within the endometrium is consistent with an IUD within the mid body of the uterus. The left ovary measures approximately 3.0 x 1.7 x 1.8 cm and contains some small peripheral calcifications. The right ovary measures approximately 3.2 x 2.7 x 3.4 cm and contains an approximately 3.5 cm cyst with a smaller adjacent daughter cyst. There is a small to moderate amount of free fluid within the pelvis, nonspecific. US/US pelvic and transvaginal IMPRESSION: 1.? IUD noted within the uterus although evaluation is somewhat limited due to the retroverted nature of the uterus. 2.? Right ovarian cyst. 3.? Small to moderate amount of free pelvic fluid, nonspecific. Laboratory Tests 01/10/23 01/21/23 13:39 07:26 Hgb 14.4 Gardnerella DNA Probe Positive A Trichomoniasis DNA Probe Positive A 01/21/23 07:26 TSH 2.36 Assessment & Plan Assessment & Plan (1) Encounter to discuss test results: Code(s): Z71.2 - Person consulting for explanation of examination or test findings Plan: Discussed: US findings of:IUD noted within the uterus although evaluation is somewhat limited due to the retroverted nature of the uterus and right ovarian cyst. LAB results: normal. STD screening of: BV and Trichomoniasis ; positive and treated. All of her questions and concerns were addressed to the best of my ability and shared decision making. She is agreeable to plan of care. (2) Pelvic pain: Code(s): R10.2 - Pelvic and perineal pain (3) Vulvar rash: Code(s): R21 - Rash and other nonspecific skin eruption Plan: Advised to clean with water only, no soaps to the area, dry well, apply and wear cotton underwear. Avoid Always pads. If symptoms persist RTO. (4) Breakthrough bleeding associated with intrauterine device (IUD): Code(s): N92.1 - Excessive and frequent menstruation with irregular cycle; Z97.5 - Presence of (intrauterine) contraceptive device Plan: If break though bleeding persist, RTO. (5) Trichomoniasis: Code(s): A59.9 - Trichomoniasis, unspecified Plan: RTO on scheduled date 02/13/23 for test of cure. (6) Bacterial vaginosis: Code(s): N76.0 - Acute vaginitis; B96.89 - Other specified bacterial agents as the cause of diseases classified elsewhere Plan: RTO on scheduled date 02/13/23 for test of cure. (7) Trichomonas contact, treated: Code(s): Z20.2 - Contact with and (suspected) exposure to infections with a predominantly sexual mode of transmission (8) Right ovarian cyst: Code(s): N83.201 - Unspecified ovarian cyst, right side Telehealth Telehealth Location of provider rendering services: practice address Location of patient: address on file Patient Identification confirmed using: Name, : Yes Telehealth method: video Patient verbally consented to treatment: Yes Patient verbally consented to billing insurance company: Yes Patient informed of any privacy concerns related to visit: Yes Coding Level of Care Code Tele Est Pt Level 3 (34907) Diagnoses Encounter to discuss test results Z71.2 Pelvic pain R10.2 Vulvar rash R21 Breakthrough bleeding associated with intrauterine device (IUD) N92.1; Z97.5 Trichomoniasis A59.9 Bacterial vaginosis N76.0; B96.89 Trichomonas contact, treated Z20.2 Right ovarian cyst N83.201
== END 2023-01-26 08:19 | disposition home or self-care (01) ==
LOC: HO.HWS 07:42
PROVIDERS: PCP Internal Medicine; Visit Provider Advanced Practice Midwife
DX: Z71.2 Person consulting for explanation of examination or test findings (principal); R10.2 Pelvic and perineal pain; R21 Rash and other nonspecific skin eruption; N92.1 Excessive and frequent menstruation with irregular cycle; Z97.5 Presence of (intrauterine) contraceptive device; A59.9 Trichomoniasis, unspecified; N76.0 Acute vaginitis; B96.89 Other specified bacterial agents as the cause of diseases classified elsewhere; Z20.2 Contact with and (suspected) exposure to infections with a predominantly sexual mode of transmission; N83.201 Unspecified ovarian cyst, right side
CPT/HCPCS: 99213

== ENCOUNTER → 2023-01-26 07:42 | Outpatient (BNVA) | payer OTHER, SELFPAY | PROVIDERS: PCP Internal Medicine; Visit Provider Advanced Practice Midwife ==

== ENCOUNTER 2023-04-28 10:12 | Outpatient (REF) | payer OTHER, SELFPAY ==
[2023-04-28 15:12] LABS: CT PCR NOT DETECTED (Not Detect.); NG PCR NOT DETECTED (Not Detect.)
[2023-04-29 12:40] LABS: BV Int Neg Control Negative (Negative); BV Int Pos Control Positive (Positive)
== END 2023-04-28 10:13 | disposition home or self-care (01) ==
LOC: HO.LAB 10:12
PROVIDERS: PCP Internal Medicine; Visit Provider Advanced Practice Midwife
DX: Z01.419 Encounter for gynecological examination (general) (routine) without abnormal findings (principal); A59.9 Trichomoniasis, unspecified; Z20.2 Contact with and (suspected) exposure to infections with a predominantly sexual mode of transmission; Z97.5 Presence of (intrauterine) contraceptive device
CPT/HCPCS: 0353U; 87480; 87510; 87660; 99395

== ENCOUNTER 2023-04-28 10:12 | Outpatient (AMB) | payer OTHER, SELFPAY ==
[2023-04-28 10:17] VITALS: BP 106/68; BMI 28.8
--- NOTE | 2023-04-28 10:17 | A.OFFVIS_ITS ---
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 Not seen by this provider in a short while. She was diagnosed and treated for trichomoniasis in the summer. She thought that she had gone for STI testing around that time but I cannot find evidence in the chart. So I am ordering it again. She has the Liletta IUD that was inserted at [facility] a couple of years ago. She gets light spotting for a period and she remembers not having any bleeding at all with her previous Mirena so she wishes it was a Mirena. I did inform her that even having a Mirena can have different bleeding profile each time and it is highly variable. 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 She ends up be getting hungry at night in eating a heavy meal and then she feels sleepy. Discussed that as we get older we need to pay more attention to how reading and taking care of our cells discussed doing stretches for her lower back pain. Testing for STIs was done and sent to lab as well she is not due for Pap smear. Even though her was unplanned and it was very challenging for her she is very happy with her 2-year-old son who keeps her very active. She states she and her partner talked about the trichomoniasis and both were treated. [facility] Medical History (Updated 04/28/23 @ 10:44 by Xochitl Dennis CNM) Trichomoniasis Trichomonas contact, treated Pelvic pain Vaginal itching Vaginal irritation Right ovarian cyst Ovarian cyst Breakthrough bleeding associated with intrauterine device (IUD) Asthma Family History Mother History of breast cancer in female History of diabetes mellitus Hypertension Father Cardiovascular disease Maternal Grandmother Hypertension Cardiovascular disease History of stroke Maternal Aunt History of diabetes mellitus Hypertension Social History Household Members: Children Both parents involved: Yes Caregiver staying overnight: No Housing: House Are you a primary child care worker to a significant other at home: No Do you presently have visiting nurse or other home services: No 75 years or older and lives alone: No Alcohol intake: former Trauma History: None Agree to transfusion: Yes service: No Current occupational status: employed 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 Current occupational exposures/hazards: No Gender identity: Female Female Reproductive History Menstrual Age of Menarche: 11 Duration of menses: <3 days Date of last menstrual period: 04/25/23 control method: progestin IUCD Date of last pap smear: 02/10/1922 History of abnormal pap smear: No Physical Exam Vital Signs: Last Vital Signs BP 106/68 04/28/23 10:17 BMI result Body Mass Index 28.8 Const General: healthy appearing, comfortable, well developed and alert Nutritional Appearance: average body habitus Orientation/consciousness: patient oriented x3 Limitations: no limitations HEENT Head: Yes normocephalic Neck Neck: Yes normal visual inspection Chest Chest palpation & inspection: normal inspection of the chest Breast/axilla inspection: normal inspection of the breasts and normal inspection of the axillae Breast/axilla palpation: normal palpation of the breasts and normal palpation of the axillae Resp Effort & Inspection: normal respiratory effort GI Inspection: Yes normal to inspection, No Abdominal wall edema and No distended Palpation (GI): Soft to palpation and nontender General: Yes bladder normal to palpation External Female Exam: normal external appearance and normal appearance of the urethra Speculum Exam - Vagina: normal appearance of the vagina, normal palpation and normal vaginal discharge Speculum Exam - Cervix: normal appearance of the cervix, normal palpation and nontender Bimanual exam- vagina & uterus: normal bimanual exam, normal palpation, uterine size normal, bladder normal to palpation, consistency normal, normal palpation, uterine mobility normal, uterine shape normal, No Cervical tenderness present, non-tender and no cervical motion tenderness Bimanual Exam- Adnexa, other: normal adnexae, no masses, normal and No adnexal tenderness Neuro General: patient oriented x3 Results AMB Test Urine AMB Test Urine Negative Last Edit by Rachael Arellano CMA on 04/28/23 10:29 Results Reviewed Results Reviewed: Laboratory Last Values Tst Clinic Negative 04/28/23 10:28 Patient: Melia Fitzgerald MR#: [id number] : 1990 Acct:[id number] Age/Sex: 32 / F ADM Date: 12/13/22 Loc: HO.US Attending Dr: Celeste Baker CNM Ordering Physician: Celeste Baker CNM Date of Service: 12/13/22 Procedure(s): US pelvic and transvaginal Accession Number(s): [id number] cc: Celeste Baker CNM~ EXAM: Pelvic Ultrasound CLINICAL INDICATION: Excessive and frequent menstruation COMPARISON: Pelvic ultrasound 05/07/2019 TECHNIQUE: The pelvis was evaluated using transabdominal and transvaginal imaging. FINDINGS: Retroverted uterus measures 5.9 x 4.6 x 5.3 cm in longitudinal by AP by transverse dimension. Evaluation of the uterus is limited due to its retroverted positioning although the endometrial stripe is estimated to measure approximately 6 mm in thickness. Linear echogenic focus within the endometrium is consistent with an IUD within the mid body of the uterus. The left ovary measures approximately 3.0 x 1.7 x 1.8 cm and contains some small peripheral calcifications. The right ovary measures approximately 3.2 x 2.7 x 3.4 cm and contains an approximately 3.5 cm cyst with a smaller adjacent daughter cyst. There is a small to moderate amount of free fluid within the pelvis, nonspecific. US/US pelvic and transvaginal IMPRESSION: 1. IUD noted within the uterus although evaluation is somewhat limited due to the retroverted nature of the uterus. 2. Right ovarian cyst. 3. Small to moderate amount of free pelvic fluid, nonspecific. Dictated By: Alhaji Kearney MD Signed By: <Electronically signed by Alhaji Kearney MD in OV> 12/16/22 1153 DD/ 1420 Name: Melia Fitzgerald Age/Sex: 31/F Attending: Xochitl Dennis CNM : 1990 Submitted by: Xochitl Dennis CNM Copies to: MR #: [id number] Status: DEP REF Collected: 02/08/22 Location: .LAB Received: 02/10/22 Interpretation Satisfactory for evaluation. Negative for intraepithelial lesion or malignancy. HPV mRNA E6/E7: NOT DETECTED This assay detects E6/E7 viral messenger RNA (mRNA) from 14 high-risk HPV types (16, 18, 31, 33, 35, 39, 45, 51, 52, 56, 58, 59, 66, 68) HPV testing performed by [facility], [place], [place]. See reference laboratory pion of the EMR for entire report. Clinical Information LMP: Katheryn Previous PAP test: 04/25/2019, Unknown findings Material Received ThinPrep-Cervical Electronically Signed By: JENNY Black (ASCP) 02/23/22 5297 The Pap Test is a screening procedure with the inherent possibility of both false negative and false positive results. Results should be interpreted in the context of historic and current clinical findings. Reliability of the Pap Test is enhanced by performing the test on a regular repetitive basis. Patient: Melia Fitzgerald Age/Sex: 31/F MR#: [id number] Page 1 of 1 Name: Melia Fitzgerald Age/Sex: 32/F : 1990 Unit#: [id number] Attend Dr: Celeste Baker CNM Re01/10/23 Status: DEP REF Location: [facility] Disch: SPEC : [id number] AMOR: 01/10/23 STATUS: COMP REQ : [id number] RECD: 01/10/[address]: Celeste Baker CNM COMP: 01/11/23 ENTERED: 01/10/[address]: ORDERED: BV Panel Test Result Flag Reference Site Trichomonas DNA Positive A Negative Gardnerella DNA Positive A Negative Libra DNA Negative Negative Assessment & Plan Assessment & Plan (1) Trichomoniasis: Comment: During the summer states she and partner were both treated test of cure done today 04/28/2023. Code(s): A59.9 - Trichomoniasis, unspecified (2) Well woman exam with routine gynecological exam: Code(s): Z01.419 - Encounter for gynecological examination (general) (routine) without abnormal findings (3) Presence of 52 mg levonorgestrel-releasing intrauterine device (IUD): Comment: has Liletta that was inserted at [facility] Code(s): Z97.5 - Presence of (intrauterine) contraceptive device (4) Screen for sexually transmitted diseases: Code(s): Z11.3 - Encounter for screening for infections with a predominantly sexual mode of transmission (5) Cervical cancer screening: Comment: 02/08/2022 Pap is negative with negative HPV. 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 Not seen by this provider in a short while. She was diagnosed and treated for trichomoniasis in the summer. She thought that she had gone for STI testing around that time but I cannot find evidence in the chart. So I am ordering it again. She has the Liletta IUD that was inserted at [facility] a couple of years ago. She gets light spotting for a period and she remembers not having any bleeding at all with her previous Mirena so she wishes it was a Mirena. I did inform her that even having a Mirena can have different bleeding profile each time and it is highly variable. 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 She ends up be getting hungry at night in eating a heavy meal and then she feels sleepy. Discussed that as we get older we need to pay more attention to how reading and taking care of our cells discussed doing stretches for her lower back pain. Testing for STIs was done and sent to lab as well she is not due for Pap smear. Even though her was unplanned and it was very challenging for her she is very happy with her 2-year-old son who keeps her very active. She states she and her partner talked about the trichomoniasis and both were treated. -----Discussed in this visit the following: healthy balanced diet, regular and consistent exercise, getting recommended health screens, doing the best she can for her particular health concerns, kegel exercises, pap smear screening and followup recommendations, mammography screening and SBE, normal changes in cycles in her life stage---reviewed issues with her IUD her happiness with parenthood and the issues with the STIs. I did not see in the system where she had had blood work for HIV hep B hep C and syphilis so I have ordered those and she can do them whenever she wishes. . Orders: Orders Hepatitis B Surface Antigen Today A59.9 - Trichomoniasis, unspecified, Z01.419 - Encounter for gynecological examination (general) (routine) without abnormal findings, Z11.3 - Encounter for screening for infections with a predominantly sexual mode of transmission, Z12.4 - Encounter for screening for malignant neoplasm of cervix, Z97.5 - Presence of (intrauterine) contraceptive device HIV Ab/Ag Today A59.9 - Trichomoniasis, unspecified, Z01.419 - Encounter for gynecological examination (general) (routine) without abnormal findings, Z11.3 - Encounter for screening for infections with a predominantly sexual mode of transmission, Z12.4 - Encounter for screening for malignant neoplasm of cervix, Z97.5 - Presence of (intrauterine) contraceptive device Bacterial Vaginosis Panel Today Z20.2 - Contact with and (suspected) exposure to infections with a predominantly sexual mode of transmission Hepatitis C Antibody Today A59.9 - Trichomoniasis, unspecified, Z01.419 - Encounter for gynecological examination (general) (routine) without abnormal findings, Z11.3 - Encounter for screening for infections with a predominantly sexual mode of transmission, Z12.4 - Encounter for screening for malignant ne oplasm of cervix, Z97.5 - Presence of (intrauterine) contraceptive device Syphilis Screen Today A59.9 - Trichomoniasis, unspecified, Z01.419 - Encounter for gynecological examination (general) (routine) without abnormal findings, Z11.3 - Encounter for screening for infections with a predominantly sexual mode of transmission, Z12.4 - Encounter for screening for malignant neoplasm of cervix, Z97.5 - Presence of (intrauterine) contraceptive device CT NG by PCR Today Z01.419 - Encounter for gynecological examination (general) (routine) without abnormal findings Coding Level of Care Code Est Pt Prev Care 18-39y(83832) Diagnoses Trichomoniasis A59.9 Well woman exam with routine gynecological exam Z01.419 Presence of 52 mg levonorgestrel-releasing intrauterine device (IUD) Z97.5 Screen for sexually transmitted diseases Z11.3 Cervical cancer screening Z12.4
== END 2023-04-28 10:48 | disposition home or self-care (01) ==
LOC: HO.HWS 10:12
PROVIDERS: PCP Internal Medicine; Visit Provider Advanced Practice Midwife
DX: Z01.419 Encounter for gynecological examination (general) (routine) without abnormal findings (principal); A59.9 Trichomoniasis, unspecified; Z97.5 Presence of (intrauterine) contraceptive device
CPT/HCPCS: 99395

== ENCOUNTER 2023-10-05 09:35 | Outpatient (REF) | payer OTHER, SELFPAY | END 2023-10-05 09:36 | disposition home or self-care (01) | LOC: HO.LAB 09:35 | PROVIDERS: PCP Internal Medicine; Visit Provider Advanced Practice Midwife | DX: N92.1 Excessive and frequent menstruation with irregular cycle (principal); F32.A Depression, unspecified; Z97.5 Presence of (intrauterine) contraceptive device; Z30.09 Encounter for other general counseling and advice on contraception | CPT/HCPCS: 99212 ==

== ENCOUNTER 2023-10-05 09:35 | Outpatient (AMB) | payer OTHER, SELFPAY ==
--- NOTE | 2023-10-05 09:35 | MHC.OFFVIS ---
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 She feels it might be related to her IUD that was placed at [facility] last summer. She admits to eating later in the evening a high sugar content foods nearing the bedtime. Currently not speaking to talk therapist or being treated for her depression. Has started to exercise more recently. Currently not intimate with the partner. She was wondering if she should have her IUD removed today, she reports in the past she did much better with the Mirena IUD. History of irregular periods in the past with heavier bleeding. Overall she is happy with the IUD as far as bleeding profile. [facility] Medical History (Updated 10/05/23 @ 10:05 by Celeste Baker CNM) Asthma Family History Mother History of breast cancer in female History of diabetes mellitus Hypertension Father Cardiovascular disease Maternal Grandmother Hypertension Cardiovascular disease History of stroke Maternal Aunt History of diabetes mellitus Hypertension Social History Household Members: Children Both parents involved: Yes Caregiver staying overnight: No Housing: House Are you a primary wound care specialist to a significant other at home: No Do you presently have visiting nurse or other home services: No 75 years or older and lives alone: No Alcohol intake: former Trauma History: None Agree to transfusion: Yes service: No Current occupational status: employed 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 Current occupational exposures/hazards: No Gender identity: Female Female Reproductive History Menstrual Age of Menarche: 11 control method: progestin IUCD (Elizabeth 06/16/21) Total pregnancies: 4 Full term: 4 Number of Living Children: 4 Date of last pap smear: 02/10/22 (neg pap and hpv) Review of Systems Const All systems reviewed & are unremarkable except as noted in HPI and below Physical Exam Vital Signs: Last Vital Signs BP 98/64 10/05/23 09:36 Const General: cooperative, healthy appearing and no acute distress Orientation/consciousness: patient oriented x3 GI Inspection: Yes normal to inspection Palpation (GI): Soft to palpation and Other GI palpation findings present (Nontender) Rectal Exam - Female: visual inspection normal General: Yes bladder normal to palpation External Female Exam: normal appearance of the urethra Speculum Exam - Vagina: normal appearance of the vagina, normal palpation and normal vaginal discharge Speculum Exam - Cervix: normal appearance of the cervix, normal palpation and Other cervical findings present (IUD strings are present) Bimanual exam- vagina & uterus: normal bimanual exam, normal palpation, uterine size normal, bladder normal to palpation, normal palpation, uterine shape normal and non-tender Bimanual Exam- Adnexa, other: normal adnexae Neuro General: patient oriented x3 Assessment & Plan Assessment & Plan (1) Breakthrough bleeding associated with intrauterine device (IUD): Code(s): N92.1 - Excessive and frequent menstruation with irregular cycle; Z97.5 - Presence of (intrauterine) contraceptive device Plan Discussed: Not removing the IUD today as it may not be the root cause of her issues, consider other alternative control if needed to change. Workup to include pelvic ultrasound to check on IUD position, GC chlamydia and BV panel obtained. Counseled regarding diet changes to include omitting high sugar content and diet, eating late at night, incorporating healthy well-balanced foods including snacks such as fresh fruit. Encouraged to walk daily outside in nature preferably. Consider talk therapy. Return to the office for test results, monitor symptoms. All of her questions and concerns were addressed to the best of my ability and shared decision making. She is agreeable to the plan of care. This note is constructed using voice recognition software. While every effort has been made to ensure accuracy, last marker errors may have been included. Orders: Orders US pelvic and transvaginal Today N92.1 - Excessive and frequent menstruation with irregular cycle, Z97.5 - Presence of (intrauterine) contraceptive device Coding Level of Care Code Est Pt Level 4 (71567) Diagnoses Breakthrough bleeding associated with intrauterine device (IUD) N92.1; Z97.5
[2023-10-05 09:36] VITALS: BP 98/64
== END 2023-10-05 10:43 | disposition home or self-care (01) ==
LOC: HO.HWS 09:35
PROVIDERS: PCP Internal Medicine; Visit Provider Advanced Practice Midwife
DX: N92.1 Excessive and frequent menstruation with irregular cycle (principal); Z97.5 Presence of (intrauterine) contraceptive device
CPT/HCPCS: 99214

== ENCOUNTER 2023-10-05 10:37 | Outpatient (REF) | payer OTHER, SELFPAY ==
[2023-10-06 12:41] LABS: CT PCR DETECTED (Not Detect.); NG PCR NOT DETECTED (Not Detect.)
[2023-10-07 13:08] LABS: BV Int Neg Control Negative (Negative); BV Int Pos Control Positive (Positive)
== END 2023-10-05 10:38 | disposition home or self-care (01) ==
LOC: HO.LNP 10:37
PROVIDERS: Visit Provider Advanced Practice Midwife
DX: N92.1 Excessive and frequent menstruation with irregular cycle (principal); Z97.5 Presence of (intrauterine) contraceptive device
CPT/HCPCS: 0353U; 87480; 87510; 87660

== ENCOUNTER → 2023-12-12 11:04 | Outpatient (BNVA) | payer SELFPAY | PROVIDERS: PCP Internal Medicine; Visit Provider Registered Nurse | DX: Z02.1 Encounter for pre-employment examination (principal) ==

== ENCOUNTER 2024-01-30 10:44 | Outpatient (AMB) | payer OTHER, SELFPAY ==
[2024-01-30 10:45] VITALS: BP 100/60
--- NOTE | 2024-01-30 10:45 | A.OFFVIS_ITS ---
Vital Signs 01/30/24 10:45 Height 5 ft 4 in BP 100/60 Intake Visit Reasons: 3 month jarvis Die Fitter: Die Fitter Present (Bonnie) Allergies No Known Allergies Allergy (Verified 01/30/24 10:45) HPI Comments Details: Patient is here today for test of cure chlamydia. She denies any symptoms of pelvic pain, dysuria or discharge. She is no longer with her partner after informing him of her results, he admitted that he took the condom off during intimacy. [facility] Medical History (Updated 10/05/23 @ 10:05 by Celeste Baker CNM) Asthma Family History Mother History of breast cancer in female History of diabetes mellitus Hypertension Father Cardiovascular disease Maternal Grandmother Hypertension Cardiovascular disease History of stroke Maternal Aunt History of diabetes mellitus Hypertension Social History Household Members: Children Housing: House Are you a primary urgent care physician assistant to a significant other at home: No Do you presently have visiting nurse or other home services: No Alcohol intake: former Trauma History: None Agree to transfusion: Yes service: No Current occupational status: employed 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 Current occupational exposures/hazards: No Gender identity: Female Female Reproductive History Menstrual Age of Menarche: 11 Review of Systems Const All systems reviewed & are unremarkable except as noted in HPI and below Physical Exam Vital Signs: Last Vital Signs BP 100/60 01/30/24 10:45 Const General: cooperative, healthy appearing and no acute distress Orientation/consciousness: patient oriented x3 GI Inspection: Yes normal to inspection Palpation (GI): Soft to palpation and Other GI palpation findings present (Nontender) Rectal Exam - Female: visual inspection normal General: Yes bladder normal to palpation External Female Exam: normal appearance of the urethra Speculum Exam - Vagina: normal appearance of the vagina, normal palpation and normal vaginal discharge Speculum Exam - Cervix: normal appearance of the cervix, normal palpation and Other cervical findings present (IUD strings present) Bimanual exam- vagina & uterus: normal bimanual exam, normal palpation, uterine size normal, bladder normal to palpation, normal palpation, uterine shape normal and non-tender Bimanual Exam- Adnexa, other: normal adnexae Neuro General: patient oriented x3 Assessment & Plan Assessment & Plan (1) Chlamydia contact, treated: Code(s): Z20.2 - Contact with and (suspected) exposure to infections with a predominantly sexual mode of transmission Plan Test of cure completed. Await results for plan of care. Continue use of condoms. STD blood work screening ordered. Has annual exam scheduled for April of 2024. All of her questions and concerns were addressed to the best of my ability and shared decision making. She is agreeable to the plan of care. This note is constructed using voice recognition software. While every effort has been made to ensure accuracy, yard stocker errors may have been included. Orders: Orders CT NG by PCR Today Z20.2 - Contact with and (suspected) exposure to infections with a predominantly sexual mode of transmission, Z86.19 - Personal history of other infectious and parasitic diseases Hepatitis C Antibody Reflex Today Z20.2 - Contact with and (suspected) exposure to infections with a predominantly sexual mode of transmission Hepatitis B Core Antibody Today Z20.2 - Contact with and (suspected) exposure to infections with a predominantly sexual mode of transmission Bacterial Vaginosis Panel Today Z20.2 - Contact with and (suspected) exposure to infections with a predominantly sexual mode of transmission HIV Ab/Ag Today Z20.2 - Contact with and (suspected) exposure to infections with a predominantly sexual mode of transmission Syphilis Screen Today Z20.2 - Contact with and (suspected) exposure to infections with a predominantly sexual mode of transmission Coding Level of Care Code Est Pt Level 3 (92108) Diagnoses Chlamydia contact, treated Z20.2
== END 2024-01-30 13:31 | disposition home or self-care (01) ==
PROVIDERS: PCP Internal Medicine; Visit Provider Advanced Practice Midwife
DX: Z20.2 Contact with and (suspected) exposure to infections with a predominantly sexual mode of transmission (principal)
CPT/HCPCS: 99213

== ENCOUNTER 2024-01-30 10:44 | Outpatient (REF) | payer SELFPAY ==
[2024-01-30 13:49] LABS: Bacterial Vaginosis PCR POSITIVE (Negative); Candida Group PCR NOT DETECTED (Not Detect); Candida glab krusei PCR NOT DETECTED (Not Detect); Trichomonas vaginalis PCR NOT DETECTED (Not Detect)
[2024-01-30 14:04] LABS: CT PCR NOT DETECTED (Not Detect.); NG PCR NOT DETECTED (Not Detect.)
== END 2024-01-30 10:45 | disposition home or self-care (01) ==
LOC: HO.LNP 10:44
PROVIDERS: PCP Internal Medicine; Visit Provider Advanced Practice Midwife
DX: Z86.19 Personal history of other infectious and parasitic diseases (principal); Z20.2 Contact with and (suspected) exposure to infections with a predominantly sexual mode of transmission
CPT/HCPCS: 0352U; 87491; 87591; 99212

== ENCOUNTER 2024-01-30 10:59 | Outpatient (REF) | payer OTHER, SELFPAY | END 2024-01-30 11:00 | disposition home or self-care (01) | LOC: HO.LAB 10:59 | PROVIDERS: Visit Provider Advanced Practice Midwife | DX: Z13.89 Encounter for screening for other disorder (principal) ==

== ENCOUNTER 2024-04-29 14:44 | Outpatient (REF) | payer OTHER, SELFPAY ==
[2024-04-30 03:22] LABS: CT PCR NOT DETECTED (Not Detect.); NG PCR NOT DETECTED (Not Detect.)
[2024-04-30 08:16] LABS: HBsAGNum1 0.26 S/CO (0.00-0.99); HIV AB/AG Nonreactive (Nonreactive); HIV Num 1 0.05 S/CO (0.00-0.99); Hepatitis B Surface Antigen Negative (Negative); ~HepC Num1 0.19 S/CO (0.00-0.79); ~Hepatitis C Antibody Nonreactive (Nonreactive)
[2024-04-30 08:27] LABS: Syphilis Screen Nonreactive (Nonreactive)
[2024-04-30 11:48] LABS: Bacterial Vaginosis PCR POSITIVE (Negative); Candida Group PCR NOT DETECTED (Not Detect); Candida glab krusei PCR NOT DETECTED (Not Detect); Trichomonas vaginalis PCR NOT DETECTED (Not Detect)
== END 2024-04-29 14:45 | disposition home or self-care (01) ==
LOC: HO.LNP 14:44
PROVIDERS: PCP Internal Medicine; Visit Provider Advanced Practice Midwife
DX: Z01.419 Encounter for gynecological examination (general) (routine) without abnormal findings (principal); Z20.2 Contact with and (suspected) exposure to infections with a predominantly sexual mode of transmission
CPT/HCPCS: 0352U; 86780; 86803; 87340; 87389; 87491; 87591; 99395

== ENCOUNTER 2024-04-29 14:44 | Outpatient (AMB) | payer OTHER, SELFPAY ==
[2024-04-29 14:46] VITALS: BP 118/72; BMI 28.8
--- NOTE | 2024-04-29 14:46 | MHC.OFFVIS ---
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 She was exposed to chlamydia in the summer and had it negative test cure after that. She has a Liletta IUD from [facility] her 4 kids are doing good is . Her oldest daughter helping her with the 3-year-old. 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 She is not having any special concerns right sometimes she notices a yellowish discharge. [facility] Medical History (Updated 10/05/23 @ 10:05 by Celeste Baker CNM) Asthma Family History Mother History of breast cancer in female History of diabetes mellitus Hypertension Father Cardiovascular disease Maternal Grandmother Hypertension Cardiovascular disease History of stroke Maternal Aunt History of diabetes mellitus Hypertension Social History Household Members: Children Both parents involved: Yes Caregiver staying overnight: No Housing: House Are you a primary critical care paramedic to a significant other at home: No Do you presently have visiting nurse or other home services: No 75 years or older and lives alone: No Alcohol intake: former Trauma History: None Agree to transfusion: Yes Patient : No service: No Current occupational status: employed 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 Current occupational exposures/hazards: No Gender identity: Female Female Reproductive History Menstrual Age of Menarche: 11 control method: progestin IUCD Total pregnancies: 4 Full term: 4 Premature: 0 Number of Living Children: 4 Ab induced: 0 Ab spontaneous: 0 Ectopics: 0 Multiple births: 0 Date of last pap smear: 01/22/24 History of abnormal pap smear: Yes History of STI: No Physical Exam Vital Signs: Last Vital Signs BP 118/72 04/29/24 14:46 BMI result Body Mass Index 28.8 Const General: healthy appearing, comfortable, no acute distress, well developed and alert Nutritional Appearance: average body habitus Orientation/consciousness: patient oriented x3 Limitations: no limitations HEENT Head: Yes normocephalic Chest Chest palpation & inspection: normal inspection of the chest Breast/axilla inspection: normal inspection of the breasts and normal inspection of the axillae Breast/axilla palpation: normal palpation of the breasts and normal palpation of the axillae Resp Effort & Inspection: normal respiratory effort GI Inspection: Yes normal to inspection, No Abdominal wall edema and No distended Palpation (GI): Soft to palpation and nontender Other: Normal external exam vagina is pink and moist clear healthy appearing mucus her Liletta IUD string is clearly visible multiparous cervix long close thick mobile nontender uterus is small retroverted mobile nontender adnexa nontender not enlarged good tone with Kegel. General: Yes bladder normal to palpation External Female Exam: normal external appearance and normal appearance of the urethra Speculum Exam - Vagina: normal appearance of the vagina, normal palpation and normal vaginal discharge Speculum Exam - Cervix: normal appearance of the cervix, normal palpation and nontender Bimanual exam- vagina & uterus: normal bimanual exam, normal palpation, uterine size normal, bladder normal to palpation, consistency normal, normal palpation, uterine mobility normal, uterine shape normal, No Cervical tenderness present, non-tender and no cervical motion tenderness Bimanual Exam- Adnexa, other: normal adnexae, no masses, normal and No adnexal tenderness Neuro General: patient oriented x3 Results Reviewed Results Reviewed: Name: Melia Fitzgerald Age/Sex: 31/F Attending: Xochitl Dennis CNM : 1990 Submitted by: Xochitl Dennis CNM Copies to: MR #: [id number] Status: DEP REF Collected: 02/08/22 Location: .LAB Received: 02/10/22 Interpretation Satisfactory for evaluation. Negative for intraepithelial lesion or malignancy. HPV mRNA E6/E7: NOT DETECTED This assay detects E6/E7 viral messenger RNA (mRNA) from 14 high-risk HPV types (16, 18, 31, 33, 35, 39, 45, 51, 52, 56, 58, 59, 66, 68) HPV testing performed by [facility], [place], [place]. See reference laboratory pion of the EMR for entire report. Clinical Information LMP: Katheryn Previous PAP test: 04/25/2019, Unknown findings Material Received ThinPrep-Cervical Electronically Signed By: JENNY Black (ASCP) 02/23/22 [id number] The Pap Test is a screening procedure with the inherent possibility of both false negative and false positive results. Results should be interpreted in the context of historic and current clinical findings. Reliability of the Pap Test is enhanced by performing the test on a regular repetitive basis. Patient: Melia Fitzgerald Age/Sex: 31/F MR#: [id number] Page 1 of 1 Assessment & Plan Assessment & Plan (1) Potential exposure to STD: Code(s): Z20.2 - Contact with and (suspected) exposure to infections with a predominantly sexual mode of transmission Category: Medical (2) Well woman exam with routine gynecological exam: Code(s): Z01.419 - Encounter for gynecological examination (general) (routine) without abnormal findings Category: Medical (3) Cervical cancer screening: Comment: 02/08/2022 Pap is negative with negative HPV. Code(s): Z12.4 - Encounter for screening for malignant neoplasm of cervix Category: Medical Plan -----Discussed in this visit the following: healthy balanced diet, regular and consistent exercise, getting recommended health screens, doing the best she can for her particular health concerns, kegel exercises, pap smear screening and followup recommendations, mammography screening and SBE, normal changes in cycles in her life stage--- . She is doing well she is going to [employer] studying business and is feeling like she is learning a lot and we will be applying it to her little business when she is done her 4 kids are doing well her 19-year-old helps her with 3-year-old. She decided that she would like to get tested for HIV hepatitis-B syphilis and hep C. Orders were in the system but I placed new orders so she can be sure to get them done downstairs. She needs to go for a primary care provider because she got kicked off the list because she had not been in a long time so she is going to call [facility] the try to get in with a new person. Reviewed the normal findings of BV and yeast and that they do not need to be treated unless she is having an issue. Reviewed that she use pretty sure she had never had an abnormal Pap smear her last Pap smear was negative in 2021 w neg hpv. so her next one will be 2026. Orders: Orders CT NG by PCR Today Z01.419 - Encounter for gynecological examination (general) (routine) without abnormal findings Bacterial Vaginosis Panel Today Z01.419 - Encounter for gynecological examination (general) (routine) without abnormal findings Hepatitis C Antibody Today Z01.419 - Encounter for gynecological examination (general) (routine) without abnormal findings, Z12.4 - Encounter for screening for malignant neoplasm of cervix, Z20.2 - Contact with and (suspected) exposure to infections with a predominantly sexual mode of transmission HIV Ab/Ag Today Z01.419 - Encounter for gynecological examination (general) (routine) without abnormal findings, Z12.4 - Encounter for screening for malignant neoplasm of cervix, Z20.2 - Contact with and (suspected) exposure to infections with a predominantly sexual mode of transmission Hepatitis B Surface Antigen Today Z01.419 - Encounter for gynecological examination (general) (routine) without abnormal findings, Z12.4 - Encounter for screening for malignant neoplasm of cervix, Z20.2 - Contact with and (suspected) exposure to infections with a predominantly sexual mode of transmission Syphilis Screen Today Z01.419 - Encounter for gynecological examination (general) (routine) without abnormal findings, Z12.4 - Encounter for screening for malignant neoplasm of cervix, Z20.2 - Contact with and (suspected) exposure to infections with a predominantly sexual mode of transmission Coding Level of Care Code Est Pt Prev Care 18-39y(58185) Diagnoses Potential exposure to STD Z20.2 Well woman exam with routine gynecological exam Z01.419 Cervical cancer screening Z12.4
== END 2024-04-29 15:53 | disposition home or self-care (01) ==
PROVIDERS: PCP Internal Medicine; Visit Provider Advanced Practice Midwife
DX: Z01.419 Encounter for gynecological examination (general) (routine) without abnormal findings (principal); Z20.2 Contact with and (suspected) exposure to infections with a predominantly sexual mode of transmission
CPT/HCPCS: 99395

== ENCOUNTER 2024-04-29 16:04 | Outpatient (REF) | payer OTHER, SELFPAY | END 2024-04-29 16:05 | disposition home or self-care (01) | LOC: HO.HHCL 16:04 | PROVIDERS: Visit Provider Advanced Practice Midwife | DX: Z13.89 Encounter for screening for other disorder (principal) ==

== ENCOUNTER 2024-11-21 13:06 | Outpatient (AMB) | payer OTHER, SELFPAY ==
[2024-11-21 13:10] VITALS: BP 118/72; BMI 29.5
--- NOTE | 2024-11-21 13:10 | A.OFFVIS_ITS ---
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 Currently not having any symptoms. Has a Kyleena IUD and just ended her cycle. [facility] Medical History (Updated 11/21/24 @ 13:53 by Celeste Baker CNM) Possible exposure to STD Asthma Family History Mother History of breast cancer in female History of diabetes mellitus Hypertension Father Cardiovascular disease Maternal Grandmother Hypertension Cardiovascular disease History of stroke Maternal Aunt History of diabetes mellitus Hypertension Social History Household Members: Children Housing: House Are you a primary customer care consultant to a significant other at home: No Do you presently have visiting nurse or other home services: No Alcohol intake: former Trauma History: None Agree to transfusion: Yes service: No Current occupational status: employed 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 Current occupational exposures/hazards: No Gender identity: Female Female Reproductive History Menstrual Age of Menarche: 11 Date of last menstrual period: 11/16/24 control method: progestin IUCD (Mirena 04/2021) Review of Systems Const All systems reviewed & are unremarkable except as noted in HPI and below Physical Exam Vital Signs: Last Vital Signs BP 118/72 11/21/24 13:10 BMI result Body Mass Index 29.5 Const General: cooperative, healthy appearing and no acute distress Orientation/consciousness: patient oriented x3 GI Inspection: Yes normal to inspection Palpation (GI): Soft to palpation and Other GI palpation findings present (Nontender) Rectal Exam - Female: visual inspection normal General: Yes bladder normal to palpation External Female Exam: normal appearance of the urethra Speculum Exam - Vagina: normal appearance of the vagina, normal palpation and normal vaginal discharge Speculum Exam - Cervix: normal appearance of the cervix, normal palpation and Other cervical findings present (IUD strings at the os note tip palpable) Bimanual exam- vagina & uterus: normal bimanual exam, normal palpation, uterine size normal, bladder normal to palpation, normal palpation, uterine shape normal and non-tender Bimanual Exam- Adnexa, other: normal adnexae Neuro General: patient oriented x3 Assessment & Plan Assessment & Plan (1) Possible exposure to STD: Code(s): Z20.2 - Contact with and (suspected) exposure to infections with a predominantly sexual mode of transmission Category: Medical Plan GC chlamydia and BV panel obtained await results for plan of care. Blood work previously ordered and available. Discuss IUD options bleeding profile. Schedule annual exam to further discuss at her next visit. The patient expressed understanding and agreement with the plan of care. All of her questions and concerns were addressed to the best of my ability. This note is constructed using voice recognition software. While every effort has been made to ensure accuracy, innovation analyst errors may have been included. Orders: Orders Bacterial Vaginosis Panel Today Z20.2 - Contact with and (suspected) exposure to infections with a predominantly sexual mode of transmission CT NG by PCR Today Z20.2 - Contact with and (suspected) exposure to infections with a predominantly sexual mode of transmission Coding Level of Care Code Est Pt Level 3 (28684) Diagnoses Possible exposure to STD Z20.2
== END 2024-11-22 07:12 | disposition home or self-care (01) ==
LOC: HO.HWS 13:06
PROVIDERS: PCP Internal Medicine; Visit Provider Advanced Practice Midwife
DX: Z20.2 Contact with and (suspected) exposure to infections with a predominantly sexual mode of transmission (principal)
CPT/HCPCS: 99213

== ENCOUNTER 2024-11-21 13:06 | Outpatient (REF) | payer OTHER, SELFPAY ==
[2024-11-21 18:14] LABS: Bacterial Vaginosis PCR POSITIVE (Negative); Candida Group PCR NOT DETECTED (Not Detect); Candida glab krusei PCR NOT DETECTED (Not Detect); Trichomonas vaginalis PCR NOT DETECTED (Not Detect)
[2024-11-21 18:44] LABS: CT PCR NOT DETECTED (Not Detect.); NG PCR NOT DETECTED (Not Detect.)
== END 2024-11-21 13:07 | disposition home or self-care (01) ==
LOC: HO.LAB 13:06
PROVIDERS: PCP Internal Medicine; Visit Provider Advanced Practice Midwife
DX: Z20.2 Contact with and (suspected) exposure to infections with a predominantly sexual mode of transmission (principal)
CPT/HCPCS: 81515; 87491; 87591; 99212

== ENCOUNTER 2024-11-21 14:00 | Outpatient (REF) | payer OTHER, SELFPAY | END 2024-11-21 14:01 | disposition home or self-care (01) | LOC: HO.LNP 14:00 | PROVIDERS: Visit Provider Advanced Practice Midwife | DX: Z13.89 Encounter for screening for other disorder (principal) ==

== ENCOUNTER → 2025-02-05 15:49 | Outpatient (BNVA) | payer SELFPAY | PROVIDERS: PCP Internal Medicine | DX: R76.11 Nonspecific reaction to tuberculin skin test without active tuberculosis (principal) ==

== ENCOUNTER 2025-06-11 22:26 | Emergency (ER) | payer OTHER, SELFPAY ==
--- NOTE | 2025-06-11 | ECG_ITS ---
Test Reason : NV Blood Pressure : */* mmHG Vent. Rate : 92 BPM Atrial Rate : 92 BPM P-R Int : 194 ms QRS Dur : 70 ms QT Int : 336 ms P-R-T Axes : 33 63 37 degrees QTcB Int : 415 ms Normal sinus rhythm Normal ECG No previous ECGs available Referred By: Generic ED Physician Electronically Signed By: STACY OJEDA MD
[2025-06-11 22:47] VITALS: BP 131/82; PULSE 96; RESP 15; TEMP 36.7; O2SAT 99; BMI 29.5
[2025-06-11 23:10] LABS: Hematocrit 48.5 % (37.0-47.0); Hemoglobin 16.8 g/dl (12.0-16.0); Imm Gran Abs Auto 0.02 X10*3/uL (0.00-0.03); Imm Gran Pct Auto 0.2 % (0.0-0.4); Lymphocytes Absolute Auto 1.7 X10*3/uL (1.2-4.9); MANUAL DIFF FLAG NO; Mean Corpuscular HGB Conc 34.6 g/dl (31.0-35.0); Mean Corpuscular Hemoglobin 30.4 pg (27.0-33.0); Mean Corpuscular Volume 87.7 fL (80.0-98.0); NRBC Abs Auto 0.000 X10*3/uL (0.0-0.012); NRBC Pct Auto 0.0 /100WBC (0.0-0.2); Platelet Count 232 X10*3/uL (160-400); Red Blood Count 5.53 X10*6/uL (4.20-5.50); White Blood Count 9.1 X10*3/uL (4.8-10.8)
[2025-06-11 23:31] LABS: Alanine Aminotransferase 19 U/L (0-31); Albumin Level 5.3 g/dL (3.5-5.0); Alkaline Phosphatase 80 U/L (39-117); Anion Gap 15 (12-20); Aspartate Amino Transferase 22 U/L (5-31); Blood Urea Nitrogen 14 mg/dL (9-16); Calcium 10.0 mg/dL (8.4-10.2); Carbon Dioxide 24 mmol/L (22-29); Chloride 105 mmol/L (96-108); Creatinine Clr Calc Pharmacy 84.8; Estimated Glomerular Filt Rate > 60; Lipase 17 U/L (8-78); Magnesium 2.0 mg/dL (1.6-2.6); Potassium 4.4 mmol/L (3.3-5.1); Sodium 140 mmol/L (135-145); Total Protein 8.7 g/dL (6.5-8.0)
[2025-06-11] MEDS: Lactated Ringers 1,000 ML 999 ML IV (23:42)
--- NOTE | 2025-06-11 23:43 | PC.NURSE ---
20 g IV placed in left hand
--- NOTE | 2025-06-11 23:47 | ED_ITS ---
HPI - General Adult General Chief complaint: Nausea/Vomiting/Diarrhea Stated complaint: n/v/d Time Seen by Provider: 06/11/25 23:14 Source: patient, RN notes reviewed and old records reviewed Mode of arrival: ambulatory Limitations: no limitations History of Present Illness ED Provider: Richard NORIEGA narrative: 35-year-old female with a past medical history significant for obesity presents for evaluation of abdominal pain, nausea and vomiting. Patient reports that she bought a weight loss injection last night from the Internet. She injected herself in her abdomen with the last night pain She reports that since the injection she has been having severe upper abdominal pain with nausea and vomiting. She reports that she would not eat anything today due to the vomiting. Denies any fevers, chills denies any previous abdominal surgeries pain She would not take any other medications she is not sure the name of the medication that she believes she purchased from needed it Related Data Home Medications ?Medication ?Instructions ?Recorded ?Confirmed levonorgestrel 20.4 mcg/24 hr (up intrauterine 01/10/ 3 11/21/24 to 8 yrs) 52 mg intrauterine device (Liletta) Previous Rx's ?Medication ?Instructions ?Recorded metronidazole 0.75 % (37.5 mg/5 1 appful vaginal BEDTI ME 5 days 01/30/24 gram) vaginal gel #70 grams ondansetron 4 mg disintegrating 4 mg PO Q8H PRN nausea and 06/12/25 tablet vomiting #10 tabs Allergies Allergy/AdvReac Type Severity Reaction Status Date / Time No Known Allergies Allergy Verified 06/11/25 22:49 Review of Systems 2 Constitutional: Constitutional: Denies body ache(s), Denies chills, Denies frequent falls and Denies headache(s) Eyes: Eyes: Denies blurry vision ENT: Denies vertigo, Denies dizziness and Denies headache(s) Cardiovascular: Cardiovascular: Denies chest pain and Denies dyspnea on exertion Respiratory: Respiratory: Denies cough and Denies dyspnea on exertion Gastrointestinal: Gastrointestinal: Reports abdominal pain, Denies constipation, Denies GI cramping, Denies diarrhea, Reports nausea and Reports vomiting Musculoskeletal: Musculoskeletal: Denies back pain Integumentary/Breasts: Skin/Breast: Denies rash Neurologic: Denies vertigo, Denies dizziness, Denies frequent falls and Denies headache(s) [facility] Past Medical History Medical History (Updated 06/12/25 @ 01:54 by Jonah Ramos) Possible exposure to STD Asthma Family History Family History Mother History of breast cancer in female History of diabetes mellitus Hypertension Father Cardiovascular disease Maternal Grandmother Hypertension Cardiovascular disease History of stroke Maternal Aunt History of diabetes mellitus Hypertension Social History Social History Household Members: Children Housing: House Are you a primary career development consultant to a significant other at home: No Do you presently have visiting nurse or other home services: No Alcohol intake: former Trauma History: None Agree to transfusion: Yes Advance Directives: No Advance Directives Information Provided: Yes service: No Current occupational status: employed 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 Current occupational exposures/hazards: No Gender identity: Female Physical Exam ED Vital Signs: Vital Signs - 24 hr 06/11/25 22:47 06/11/25 23:48 Temperature 98.1 F 98.4 F Pulse Rate 96 87 Respiratory Rate 15 18 Blood Pressure 131/82 133/87 Pulse Oximetry 99 99 Oxygen Delivery Method Room Air Room Air BMI result Body Mass Index 29.5 Const General: healthy appearing, comfortable, no acute distress, alert and awake Nutritional Appearance: well nourished Orientation/consciousness: patient oriented x3 HENMT Head: Yes normocephalic and Yes atraumatic Eyes Eyelids: Yes eyelids normal Conjunctivae: conjunctivae normal Sclerae: sclerae normal Corneas: corneas normal Pupils: Equal, round and reactive pupils present EOM: EOMs intact bilaterally Neck Neck: Yes full ROM Resp Effort & Inspection: normal respiratory effort, able to speak in complete sentences and not labored Cardio Rate: regular rate Rhythm: regular rhythm GI Inspection: No distended Palpation (GI): Soft to palpation, not firm, Tenderness to palpation present (GI) in the epigastrum and in the LUQ; not in the LLQ, not in the RLQ, not in the RUQ and Rodriguez's sign negative, no guarding and not rigid Auscultation: normoactive bowel sounds Skin General skin exam: no rashes or lesions noted and elasticity normal Neuro General: patient oriented x3 Cranial nerves: Yes Equal, round and reactive pupils present and Yes Bilaterally intact EOM present Cognition (Neuro): normal cognition Extrem Other: Moving all extremities well without any obvious deformities Course Reevaluation(s) Reevaluation #1: patient reports feeling much better after IV Toradol and Protonix, she is stable for discharge at this time. We will discharge her home with a short prescription of Zofran Time: 01:52 Reevaluation #2: the patient is total bilirubin breakdown was primarily indirect bilirubin which is not indicative obstructive biliary disease and therefore an ultrasound was deferred. The patient also reports feeling much better Time: 01:53 Medications Administered Discontinued Medications Generic Name Dose Route Start Last Admin Trade Name Freq PRN Reason Stop Dose Admin Lactated Ringer's 1,000 mls @ 999 mls/hr 06/11/25 23:30 06/11/25 23:42 Lr IV 06/12/25 00:30 999 mls/hr .Q1H1M FELICIA Administration Ketorolac Tromethamine 30 mg 06/12/25 01:11 06/12/25 01:34 Ketorolac Tromethamine 30 Mg/Ml Vial IVPUSH 06/12/25 01:12 30 mg ONCE ONE Administration Morphine Sulfate 4 mg 06/11/25 23:24 06/11/25 23:42 Morphine Sulfate 4 Mg/Ml Cartridge IVPUSH 06/11/25 23:25 4 mg ONCE ONE Administration Protocol Ondansetron HCl 4 mg 06/11/25 23:26 06/11/25 23:42 Ondansetron Hcl 4 Mg/2 Ml Vial IVPUSH 06/11/25 23:27 4 mg ONCE ONE Administration Pantoprazole Sodium 40 mg 06/12/25 01:11 06/12/25 01:34 Pantoprazole Sodium 40 Mg/10 Ml Vial IVPUSH 06/12/25 01:12 40 mg ONCE ONE Administration Medical Decision Making Medical Decision Making MDM Narrative: 35-year-old female presenting for evaluation of abdominal pain, nausea and vomiting after purchasing a weight loss medication from the Internet and injecting herself with the last night. Her vital signs are stable. she is afebrile, she is not tachycardic. She has no leukocytosis. No significant left shift. She does have an elevated bilirubin of 2.4 which is unclear etiology. She has no right upper quadrant tenderness on exam. She has previous lab values showing an elevated bilirubin. we will add on direct versus indirect. If This is primarily direct we will consider an ultrasound to evaluate for obstructive biliary disease. In the meantime we will treat the patient with IV fluids, morphine and Zofran and re-evaluate. Viral swab was also ordered. Differential Diagnosis Differential Diagnoses: The differential diagnosis associated with the presentation includes gastroenteritis Gastritis Pancreatitis Peptic ulcer disease Medication reaction Biliary colic Cholecystitis less likely Lab Data MDM Lab Attestation statement: I reviewed the patient's lab results. as above. no significant leukocytosis. She has no elevated hemoglobin and hematocrit which could be due to dehydration from vomiting throughout the day today. Normal platelet count. No electrolyte abnormalities warranting dimension. Elevated total bilirubin that is described above. The patient is not 06/11/25 23:05 06/11/25 23:05 Labs: Lab Results 06/11/25 06/11/25 Range/Units 23:05 23:35 WBC 9.1 (4.8-10.8) X10*3/uL RBC 5.53 H (4.20-5.50) X10*6/uL Hgb 16.8 H (12.0-16.0) g/dl Hct 48.5 H (37.0-47.0) % MCV 87.7 (80.0-98.0) fL MCH 30.4 (27.0-33.0) pg MCHC 34.6 (31.0-35.0) g/dl RDW 12.5 (11.0-16.0) % Plt Count 232 D (160-400) X10*3/uL MPV 10.6 (9.4-12.3) fL Immature Gran % (Auto) 0.2 (0.0-0.4) % Neut % (Auto) 72.7 (45-73) % Lymph % (Auto) 18.4 L (20-40) % [place] % (Auto) 7.8 (2-11) % Eos % (Auto) 0.8 (0-4) % Baso % (Auto) 0.1 (0-2) % Lymph # (Auto) 1.7 (1.2-4.9) X10*3/uL [place] # (Auto) 0.7 (0.1-1.2) X10*3/uL Eos # (Auto) 0.1 (0.0-0.4) X10*3/uL Baso # (Auto) 0.0 (0.0-0.2) X10*3/uL Abs Immat Gran (auto) 0.02 (0.00-0.03) X10*3/uL Absolute Neuts (auto) 6.6 (2.0-8.3) x10*3/uL Absolute Nucleated RBC 0.000 (0.0-0.012) X10*3/uL Nucleated RBC % (auto) 0.0 (0.0-0.2) /100WBC Sodium 140 (135-145) mmol/L Potassium 4.4 (3.3-5.1) mmol/L Chloride 105 (96-108) mmol/L Carbon Dioxide 24 (22-29) mmol/L Anion Gap 15 (12-20) BUN 14 (9-16) mg/dL Creatinine 0.90 (0.5-1.4) mg/dL Estim Creat Clear Calc 84.8 Estimated GFR > 60 Random Glucose 113 (60-115) mg/dL Calcium 10.0 D (8.4-10.2) mg/dL Magnesium 2.0 (1.6-2.6) mg/dL Total Bilirubin 2.3 H (0.0-1.0) mg/dL Direct Bilirubin 0.5 (0.0-0.5) mg/dL AST 22 (5-31) U/L ALT 19 (0-31) U/L Alkaline Phosphatase 80 (39-117) U/L Total Protein 8.7 H (6.5-8.0) g/dL Albumin 5.3 H (3.5-5.0) g/dL Lipase 17 (8-78) U/L Beta HCG, Quant < 2 mIU/mL Influenza Type A (PCR) NEGATIVE (Negative) Influenza Type B (PCR) NEGATIVE (Negative) RSV RNA Qual (PCR) NEGATIVE (Negative) SARS-CoV-2 RNA (RT-PCR) NEGATIVE (Negative) Discharge Plan Discharge Clinical Impression: Abdominal pain Patient Disposition: Home, Self-Care Instructions: Abdominal Pain (ED) Additional Instructions: your workup in the ER today was reassuring pain You should not inject any medications that are not prescribed to you. Use Zofran as needed for nausea and vomiting. Follow up with your primary doctor, return for new or worsening symptoms Prescriptions: New ondansetron 4 mg tablet,disintegrating 4 mg PO Q8H PRN (Reason: nausea and vomiting) Qty: 10 0RF No Action metronidazole 0.75 % (37.5mg/5 gram) gel 1 appful vaginal BEDTIME 5 Days Qty: 70 0RF Liletta 20.4 mcg/24 hrs (8 yrs) 52 mg intrauterine device intrauterine Print Language: Portuguese
[2025-06-11 23:48] VITALS: BP 133/87; PULSE 87; RESP 18; TEMP 36.9; O2SAT 99
[2025-06-12 00:16] LABS: Resp Syncy Virus RNA Qual PCR NEGATIVE (Negative); SARS COV2 PCR INHOUSE NEGATIVE (Negative)
--- NOTE | 2025-06-12 01:40 | PC.NURSE ---
medicated per aug, notified GAYE Billy
[2025-06-12 02:10] VITALS: BP 102/71; PULSE 64; RESP 18; TEMP 36.7; O2SAT 99
[2025-06-12 02:12] LABS: Appearance Urine Cloudy; Glucose Urine UA Negative (Negative); PH 5.5 (5.0-9.0); Specific Gravity - Urine >= 1.030 (1.005-1.025); UMIC TRIGGER UACC YES
[2025-06-12 02:15] VITALS: BP 102/71; PULSE 64; RESP 18; TEMP 36.7; O2SAT 99
[2025-06-12 02:27] LABS: UACC Culture Trigger YES
== END 2025-06-12 02:17 | disposition home or self-care (01) ==
PROVIDERS: Physician Assistant; Emergency Provider Emergency Medicine; PCP Internal Medicine
DX: R10.10 Upper abdominal pain, unspecified (principal); R10.23 Pelvic and perineal pain bilateral; R11.2 Nausea with vomiting, unspecified; R10.816 Epigastric abdominal tenderness; Z03.818 Encounter for observation for suspected exposure to other biological agents ruled out; Z79.899 Other long term (current) drug therapy
CPT/HCPCS: 36415; 80053; 81001; 82248; 83690; 83735; 84702; 85025; 87086; 87637; 93005; 96365; 96375; 99284; 99285; J1885; J2270; J2405; J2470; J7120

== ENCOUNTER → 2025-06-11 22:57 | Outpatient (BNV) | payer OTHER, SELFPAY | PROVIDERS: Emergency Provider Emergency Medicine; PCP Internal Medicine; Visit Provider Internal Medicine Cardiovascular Disease | DX: R11.2 Nausea with vomiting, unspecified (principal) | CPT/HCPCS: 93010 ==